=== PATIENT | female | born 1965 | race American Indian/Alaskan Native ===

== ENCOUNTER 2017-01-22 00:08 | Inpatient (IN) | payer OTHER ==
--- NOTE | 2017-01-22 00:25 | Emergency Department Report ---
ED Shortness of Breath HPI - General Chief Complaint: Dyspnea/Respdistress Stated Complaint: DIFFICULTY BREATHING Time Seen by Provider: 01/22/17 00:23 Source: patient, EMS (ems notes not available at time of chart dictation) Limitations: No Limitations - History of Present Illness Initial Comments: This is a 51-year-old female. She is previously unknown to me. She is brought to the hospital by EMS for cough, lightheadedness, dizziness, almost passing out and shortness of breath. Symptoms have been going on for the past few days. They worsen with physical exertion, and they decrease with rest. There is no leg pain. There is right lower extremity swelling. Patient reports that she has a "charley horse" in the right lower extremity. No recent trips greater than 4 hours. No recent hospital admissions. Patient has been having a nonproductive cough for the past few weeks, it is getting worse. The patient reports that she has dramatic decrease in exercise tolerance , she has new onset orthopnea, and she has swelling in her legs. Patient also describes central chest pain which does not radiate to the back, arms or neck. There is no hematemesis of bright red blood per rectum. MD Complaint: shortness of breath, cough, chest pain -: Gradual, days(s) Quality: aching, throbbing Consistency: constant Improves With: oxygen, rest, bronchodilators, upright position Worsens With: lying flat, exertion Context: recent URI Associated Symptoms: chest pain, cough, orhopnia, lower extremity pain - Related Data Home Medications Medication Instructions Recorded Confirmed Last Taken Losartan [Cozaar] 50 mg PO QDAY 01/22/17 01/22/17 01/21/17 21:00 amLODIPine [Norvasc] 10 mg PO DAILY 01/22/17 01/22/17 01/21/17 21:00 Previous Rx's Medication Instructions Recorded Last Taken Type Oxycodone HCl/Acetaminophen 1 each PO Q6HR PRN #20 tablet 12/27/15 01/02/17 00: 00 Rx [Percocet 7.5/325 mg] Allergies Allergy/AdvReac Type Severity Reaction Status Date / Time No Known Allergies Allergy Verified 01/22/17 03:08 ED Review of Systems ROS: Stated complaint: DIFFICULTY BREATHING Other details as noted in HPI Constitutional: malaise Eyes: denies: vision change ENT: congestion Respiratory: shortness of breath Cardiovascular: chest pain, dyspnea on exertion, syncope Gastrointestinal: denies: melena, hematochezia Genitourinary: denies: dysuria Musculoskeletal: arthralgia, myalgia Skin: denies: lesions Neurological: weakness Psychiatric: anxiety ED Past Medical Hx - Past Medical History Hx Hypertension: Yes - Surgical History Hx Cholecystectomy: Yes - Social History Smoking Status: Never Smoker Substance Use Type: None - Medications Home Medications: Home Medications Medication Instructions Recorded Confirmed Last Taken Type Oxycodone HCl/Acetaminophen 1 each PO Q6HR PRN #20 tablet 12/27/15 01/22/1707/21 00:00 Rx [Percocet 7.5/325 mg] Losartan [Cozaar] 50 mg PO QDAY 01/22/17 01/22/17 01/21/17 21:00 History amLODIPine [Norvasc] 10 mg PO DAILY 01/22/17 01/22/17 01/21/17 21:00 History ED Physical Exam - General Limitations: Physical Limitation General appearance: alert, in distress, obese - Head Head exam: Present: atraumatic, normocephalic - Eye Eye exam: Present: normal appearance, EOMI. Absent: nystagmus - ENT ENT exam: Present: normal exam, normal orophraynx, mucous membranes moist, normal external ear exam - Neck Neck exam: Present: normal inspection, full ROM. Absent: tenderness, meningismus - Respiratory Respiratory exam: Present: respiratory distress, wheezes, rales, rhonchi. Absent: stridor, chest wall tenderness, accessory muscle use, decreased breath sounds, prolonged expiratory - Cardiovascular Cardiovascular Exam: Present: normal rhythm, tachycardia, normal heart sounds. Absent: systolic murmur, diastolic murmur, rubs, gallop - GI/Abdominal GI/Abdominal exam: Present: soft, normal bowel sounds. Absent: distended, tenderness, guarding, rebound, rigid, pulsatile mass - Extremities Exam Extremities exam: Present: normal inspection, full ROM, normal capillary refill. Absent: tenderness, pedal edema, joint swelling, calf tenderness - Back Exam Back exam: Present: normal inspection, full ROM. Absent: tenderness, CVA tenderness (R), CVA tenderness (L), muscle spasm, paraspinal tenderness, vertebral tenderness - Neurological Exam Neurological exam: Present: alert, oriented X3, other (Extraocular movements intact. Tongue midline. No facial droop. Facial sensation intact to light touch in the V1, V2, V3 distribution bilaterally. 5 and 5 strength in 4 extremities.. Sensation is intact to light touch in 4 extremities.). Absent: motor sensory deficit - Psychiatric Psychiatric exam: Present: normal affect, normal mood - Skin Skin exam: Present: warm, dry, intact, normal color. Absent: rash ED Course Vital Signs 01/22/17 01/22/17 01/22/17 00:43 00:52 04:31 Temperature 98.7 F Pulse Rate 103 H 98 H Respiratory 24 24 21 Rate Blood Pressure 148/87 Blood Pressure 148/87 127/76 [Left] O2 Sat by Pulse 99 99 Oximetry - Reevaluation(s) Reevaluation #1: 01/22/17 04:24 CT scan demonstrates multiple pulmonary emboli. Lovenox ordered. The Hospital physician is updated. ED Medical Decision Making - Lab Data Result diagrams: 01/22/17 00:44 01/22/17 01:38 Vital Signs 01/22/17 01/22/17 00:43 00:52 Temperature 98.7 F Pulse Rate 103 H Respiratory 24 24 Rate Blood Pressure 148/87 Blood Pressure 148/87 [Left] O2 Sat by Pulse 99 Oximetry Lab Results 01/22/17 01/22/17 01/22/17 Range/Units 00:44 00:44 00:44 WBC 11.5 H (4.5-11.0) K/mm3 RBC 4.66 (3.65-5.03) M/mm3 Hgb 7.9 L (10.1-14.3) gm/dl Hct 27.2 L (30.3-42.9) % MCV 58 L (79-97) fl MCH 17 L (28-32) pg MCHC 29 L (30-34) % RDW 20.1 H (13.2-15.2) % Plt Count 230 (140-440) K/mm3 Lymph % (Auto) 16.8 (13.4-35.0) % [place] % (Auto) 8.5 H (0.0-7.3) % Eos % (Auto) 0.9 (0.0-4.3) % Baso % (Auto) 0.5 (0.0-1.8) % Lymph # 1.9 (1.2-5.4) K/mm3 [place] # 1.0 H (0.0-0.8) K/mm3 Eos # 0.1 (0.0-0.4) K/mm3 Baso # 0.1 (0.0-0.1) K/mm3 Seg Neutrophils % 73.3 H (40.0-70.0) % Seg Neutrophils # 8.4 H (1.8-7.7) K/mm3 PT 13.8 (12.2-14.9) Sec. INR 1.01 (0.87-1.13) APTT 27.2 (24.2-36.6) Sec. Sodium (137-145) mmol/L Potassium (3.6-5.0) mmol/L Chloride (98-107) mmol/L Carbon Dioxide (22-30) mmol/L Anion Gap mmol/L BUN (7-17) mg/dL Creatinine (0.7-1.2) mg/dL Estimated GFR ml/min BUN/Creatinine Ratio % Glucose (65-100) mg/dL Lactic Acid 1.70 (0.7-2.0) mmol/L Calcium (8.4-10.2) mg/dL Magnesium (1.7-2.3) mg/dL Troponin T (0.00-0.029) ng/mL NT-Pro-B Natriuret Pep (0-900) pg/mL 01/22/17 01/22/17 01/22/17 Range/Units 00:44 00:44 01:38 WBC (4.5-11.0) K/mm3 RBC (3.65-5.03) M/mm3 Hgb (10.1-14.3) gm/dl Hct (30.3-42.9) % MCV (79-97) fl MCH (28-32) pg MCHC (30-34) % RDW (13.2-15.2) % Plt Count (140-440) K/mm3 Lymph % (Auto) (13.4-35.0) % [place] % (Auto) (0.0-7.3) % Eos % (Auto) (0.0-4.3) % Baso % (Auto) (0.0-1.8) % Lymph # (1.2-5.4) K/mm3 [place] # (0.0-0.8) K/mm3 Eos # (0.0-0.4) K/mm3 Baso # (0.0-0.1) K/mm3 Seg Neutrophils % (40.0-70.0) % Seg Neutrophils # (1.8-7.7) K/mm3 PT (12.2-14.9) Sec. INR (0.87-1.13) APTT (24.2-36.6) Sec. Sodium 135 L (137-145) mmol/L Potassium 4.6 (3.6-5.0) mmol/L Chloride 96.0 L (98-107) mmol/L Carbon Dioxide 24 (22-30) mmol/L Anion Gap 20 mmol/L BUN 14 (7-17) mg/dL Creatinine 1.2 (0.7-1.2) mg/dL Estimated GFR 58 ml/min BUN/Creatinine Ratio 11.66 % Glucose 126 H (65-100) mg/dL Lactic Acid (0.7-2.0) mmol/L Calcium 8.9 (8.4-10.2) mg/dL Magnesium 2.20 (1.7-2.3) mg/dL Troponin T < 0.010 (0.00-0.029) ng/mL NT-Pro-B Natriuret Pep 2385 H (0-900) pg/mL 01/22/17 Range/Units 02:29 WBC (4.5-11.0) K/mm3 RBC (3.65-5.03) M/mm3 Hgb (10.1-14.3) gm/dl Hct (30.3-42.9) % MCV (79-97) fl MCH (28-32) pg MCHC (30-34) % RDW (13.2-15.2) % Plt Count (140-440) K/mm3 Lymph % (Auto) (13.4-35.0) % [place] % (Auto) (0.0-7.3) % Eos % (Auto) (0.0-4.3) % Baso % (Auto) (0.0-1.8) % Lymph # (1.2-5.4) K/mm3 [place] # (0.0-0.8) K/mm3 Eos # (0.0-0.4) K/mm3 Baso # (0.0-0.1) K/mm3 Seg Neutrophils % (40.0-70.0) % Seg Neutrophils # (1.8-7.7) K/mm3 PT 14.4 (12.2-14.9) Sec. INR 1.06 (0.87-1.13) APTT (24.2-36.6) Sec. Sodium (137-145) mmol/L Potassium (3.6-5.0) mmol/L Chloride (98-107) mmol/L Carbon Dioxide (22-30) mmol/L Anion Gap mmol/L BUN (7-17) mg/dL Creatinine (0.7-1.2) mg/dL Estimated GFR ml/min BUN/Creatinine Ratio % Glucose (65-100) mg/dL Lactic Acid (0.7-2.0) mmol/L Calcium (8.4-10.2) mg/dL Magnesium (1.7-2.3) mg/dL Troponin T (0.00-0.029) ng/mL NT-Pro-B Natriuret Pep (0-900) pg/mL - EKG Data -: EKG Interpreted by Me EKG shows normal: sinus rhythm - EKG Data 01/22/17 03:47 normal sinus, 88 bpm, left axis deviation, T-wave inversion V2, V3, abnormal EKG, not morphologically consistent with STEMI, when compared to prior EKG from 2016, T wave changes are new, left axis deviation is old. - Radiology Data Radiology results: image reviewed interpreted by me: xr chest: pulmonary vascular congestion - Medical Decision Making differential diagnosis: bronchitis, chf, acs, pulmonary embolus, pulmonary htn, deep, respiratory failure assessment and plan: 51 y/o obese female with chest tightness, shortness of breath, wheezing, rhonchi, elevated BNP, most likely multifactorial, probable pulmonary hypertension and DEEP. She also reports a charley horse in her right lower extremity and right calf pain. Her EKG has nonspecific changes. She is given albuterol, Atrovent, steroids, aspirin and Lasix. CT scan of the chest is ordered. Hospital physician, Dr. Collins, accepts the patient to his service. Critical care attestation.: If time is entered above; I have spent that time in minutes in the direct care of this critically ill patient, excluding procedure time. ED Disposition Clinical Impression: Chest pain, Dyspnea Disposition: [id number] OP ADMIT IP TO THIS HOSP Is pt being admited?: Yes Does the pt Need Aspirin: Yes Condition: Stable
[2017-01-22 01:12] LABS: Basophils % (Auto) 0.5 % (0.0-1.8); Eosinophils % (Auto) 0.9 % (0.0-4.3); Mean Corpuscular HGB Conc 29 % (30-34); Platelet Count 230 K/mm3 (140-440); Red Blood Count 4.66 M/mm3 (3.65-5.03); White Blood Count 11.5 K/mm3 (4.5-11.0)
[2017-01-22 01:13] LABS: Hematocrit 27.2 % (30.3-42.9); Hemoglobin 7.9 gm/dl (10.1-14.3); Mean Corpuscular Hemoglobin 17 pg (28-32); Mean Corpuscular Volume 58 fl (79-97); Red Cell Distribution Width 20.1 % (13.2-15.2)
[2017-01-22 01:27] LABS: INR 1.01 (0.87-1.13); Partial Thromboplastin Time 27.2 Sec. (24.2-36.6)
[2017-01-22 01:56] LABS: BUN/Creatinine Ratio 11.66; Calcium 8.9 mg/dL (8.4-10.2); Potassium 4.6 mmol/L (3.6-5.0)
[2017-01-22] MEDS ORDERED: PROVENTIL IH ONE ×3 (02:04→03:28)
[2017-01-22] MEDS ORDERED: ATROVENT IH ONE ×3 (02:04→03:28)
[2017-01-22] MEDS ORDERED: LASIX IV ONE (02:04)
[2017-01-22] MEDS ORDERED: NITROSTAT SL PRN (02:04)
[2017-01-22] MEDS ORDERED: BABY ASPIRIN PO ONE (02:05)
[2017-01-22] MEDS ORDERED: NACL ONE (02:53)
[2017-01-22 03:23] LABS: INR 1.06 (0.87-1.13)
[2017-01-22] MEDS ORDERED: LOVENOX SUB-Q STA ×2 (04:13→04:19)
--- NOTE | 2017-01-22 04:16 | XRay Report ---
FINAL REPORT PROCEDURE: CT ANGIO CHEST TECHNIQUE: Computerized tomographic angiography of the chest was performed after the IV injection of iodinated nonionic contrast including image processing. The image data was postprocessed using 2-dimensional multiplanar reformatted (MPR) and 3-dimensional (MIP and/or volume rendered) techniques. HISTORY: cp sob COMPARISON: No prior studies are available for comparison. FINDINGS: Heart and pericardium: Normal. Thoracic aorta: Normal. Pulmonary vasculature: There are bilateral pulmonary emboli in the mid and distal branches. There is no saddle embolus.. Lymph nodes: No enlarged thoracic lymph nodes. Lungs: Lungs are clear and expanded. There are no infiltrates.. Pleural space: There is no effusion or pneumothorax.. Musculoskeletal structures: No significant abnormality. Upper abdominal structures: There has been a cholecystectomy.. IMPRESSION: There are bilateral pulmonary emboli in the mid and distal branches. There is no saddle embolus.. There is no thoracic aortic aneurysm or dissection. Lungs are clear and expanded. There are no infiltrates.. There is no effusion or pneumothorax.. There has been a cholecystectomy.. Dr. Arreola was notified by telephone at 4:08 a.m. Eastern time.
--- NOTE | 2017-01-22 07:37 | History and Physical Report ---
History of Present Illness Date of examination: 01/22/17 Date of admission: 01/22/17 02:11 Chief complaint: Chief complaint: Increasing shortness of breath for 1 week. History of present illness: History of present illness: 51-year-old -[place] female comes in for increasing shortness of breath and wheezing for last 1 week. Never had a similar episode in the past. No fever no chills. Cough nonproductive. No history of asthma. Slight chest discomfort present. Exertional dyspnea present. No orthopnea. She is brought to the hospital by EMS for cough, lightheadedness, dizziness, almost passing out and shortness of breath. Symptoms have been going on for the past few days. They worsen with physical exertion, and they decrease with rest. There is no leg pain. There is right lower extremity swelling. Patient reports that she has a "charley horse" in the right lower extremity. No recent trips greater than 4 hours. No recent hospital admissions. Patient has been having a nonproductive cough for the past few weeks, it is getting worse. The patient reports that she has dramatic decrease in exercise tolerance ,and has swelling in her legs. Patient also describes central chest pain which does not radiate to the back, arms or neck. There is no hematemesis of bright red blood per rectum. MD Complaint: shortness of breath, cough, chest pain -: Gradual, days(s) Quality: aching, throbbing Consistency: constant Improves With: oxygen, rest, bronchodilators, upright position Worsens With: lying flat, exertion Context: recent URI Associated Symptoms: chest pain, cough, orhopnia, lower extremity pain - Related Data Home Medications Medication Instructions Recorded Confirmed Last Taken Losartan [Cozaar] 50 mg PO QDAY 01/22/17 01/22/17 01/21/17 21:00 amLODIPine [Norvasc] 10 mg PO DAILY 01/22/17 01/22/17 01/21/17 21:00 Previous Rx's Medication Instructions Recorded Last Taken Type Oxycodone HCl/Acetaminophen 1 each PO Q6HR PRN #20 tablet 12/27/15 01/02/17 00: 00 Rx [Percocet 7.5/325 mg] Allergies Allergy/AdvReac Type Severity Reaction Status Date / Time No Known Allergies Allergy Verified 01/22/17 03:08 ED Review of Systems ROS: Stated complaint: DIFFICULTY BREATHING Other details as noted in HPI Constitutional: malaise Eyes: denies: vision change ENT: congestion Respiratory: shortness of breath Cardiovascular: chest pain, dyspnea on exertion, syncope Gastrointestinal: denies: melena, hematochezia Genitourinary: denies: dysuria Musculoskeletal: arthralgia, myalgia Skin: denies: lesions Neurological: weakness Psychiatric: anxiety ED Past Medical Hx - Past Medical History Hx Hypertension: Yes - Surgical History Hx Cholecystectomy: Yes - Social History Smoking Status: Never Smoker Substance Use Type: None Family history: Hypertension - Medications Home Medications: Home Medications Medication Instructions Recorded Confirmed Last Taken Type Oxycodone HCl/Acetaminophen 1 each PO Q6HR PRN #20 tablet 12/27/15 01/22/1707/21 00:00 Rx [Percocet 7.5/325 mg] Losartan [Cozaar] 50 mg PO QDAY 01/22/17 01/22/17 01/21/17 21:00 History amLODIPine [Norvasc] 10 mg PO DAILY 01/22/17 01/22/17 01/21/17 21:00 History Medications and Allergies Allergies Allergy/AdvReac Type Severity Reaction Status Date / Time No Known Allergies Allergy Verified 01/22/17 03:08 Home Medications Medication Instructions Recorded Confirmed Last Taken Type Oxycodone HCl/Acetaminophen 1 each PO Q6HR PRN #20 tablet 12/27/15 01/22/1707/21 00:00 Rx [Percocet 7.5/325 mg] Losartan [Cozaar] 50 mg PO QDAY 01/22/17 01/22/17 01/21/17 21:00 History amLODIPine [Norvasc] 10 mg PO DAILY 01/22/17 01/22/17 01/21/17 21:00 History Active Meds: Active Medications Nitroglycerin (Nitrostat) 0.4 mg SL .Q5MIN PRN PRN Reason: Chest Pain Pneumococcal Polyvalent Vaccine (Pneumovax 23) 0.5 ml IM .ONCE ONE Stop: 01/22/17 12:01 Exam - Physical Exam Narrative exam: In [id number] respiratory distress - Constitutional Vitals: Temp Pulse Resp BP Pulse Ox 98.7 F 84 22 127/76 99 01/22/17 00:43 01/22/17 05:11 01/22/17 05:45 01/22/17 04:31 01/22/17 04:31 General appearance: Present: no acute distress, well-nourished - EENT Eyes: Present: PERRL ENT: hearing intact, clear oral mucosa - Neck Neck: Present: supple, normal ROM - Respiratory Respiratory effort: normal Respiratory: bilateral: rhonchi - Cardiovascular Heart rate: 96 Rhythm: regular Heart Sounds: Present: S1 & S2. Absent: rub, click - Extremities Extremities: no ischemia, pulses intact, pulses symmetrical, No edema Extremity abnormal: edema (2+ peripheral edema) Peripheral Pulses: within normal limits - Abdominal General gastrointestinal: Present: soft, non-tender, non-distended, normal bowel sounds Female genitourinary: Present: normal - Integumentary Integumentary: Present: clear, warm, dry - Musculoskeletal Musculoskeletal: gait normal, strength equal bilaterally - Psychiatric Psychiatric: appropriate mood/affect, intact judgment & insight - Neurologic Neurologic: CNII-XII intact, moves all extremities Results - Labs CBC & Chem 7: 01/22/17 00:44 01/22/17 01:38 Labs: Laboratory Last Values WBC 11.5 K/mm3 (4.5-11.0) H 01/22/17 00:44 RBC 4.66 M/mm3 (3.65-5.03) 01/22/17 00:44 Hgb 7.9 gm/dl (10.1-14.3) L 01/22/17 00:44 Hct 27.2 % (30.3-42.9) L 01/22/17 00:44 MCV 58 fl (79-97) L 01/22/17 00:44 MCH 17 pg (28-32) L 01/22/17 00:44 MCHC 29 % (30-34) L 01/22/17 00:44 RDW 20.1 % (13.2-15.2) H 01/22/17 00:44 Plt Count 230 K/mm3 (140-440) 01/22/17 00:44 Lymph % (Auto) 16.8 % (13.4-35.0) 01/22/17 00:44 [place] % (Auto) 8.5 % (0.0-7.3) H 01/22/17 00:44 Eos % (Auto) 0.9 % (0.0-4.3) 01/22/17 00:44 Baso % (Auto) 0.5 % (0.0-1.8) 01/22/17 00:44 Lymph # 1.9 K/mm3 (1.2-5.4) 01/22/17 00:44 [place] # 1.0 K/mm3 (0.0-0.8) H 01/22/17 00:44 Eos # 0.1 K/mm3 (0.0-0.4) 01/22/17 00:44 Baso # 0.1 K/mm3 (0.0-0.1) 01/22/17 00:44 Seg Neutrophils % 73.3 % (40.0-70.0) H 01/22/17 00:44 Seg Neutrophils # 8.4 K/mm3 (1.8-7.7) H 01/22/17 00:44 PT 14.4 Sec. (12.2-14.9) 01/22/17 02:29 INR 1.06 (0.87-1.13) 01/22/17 02:29 APTT 27.2 Sec. (24.2-36.6) 01/22/17 00:44 Sodium 135 mmol/L (137-145) L 01/22/17 01:38 Potassium 4.6 mmol/L (3.6-5.0) 01/22/17 01:38 Chloride 96.0 mmol/L (98-107) L 01/22/17 01:38 Carbon Dioxide 24 mmol/L (22-30) 01/22/17 01:38 Anion Gap 20 mmol/L 01/22/17 01:38 BUN 14 mg/dL (7-17) 01/22/17 01:38 Creatinine 1.2 mg/dL (0.7-1.2) 01/22/17 01:38 Estimated GFR 58 ml/min 01/22/17 01:38 BUN/Creatinine Ratio 11.66 % 01/22/17 01:38 Glucose 126 mg/dL (65-100) H 01/22/17 01:38 Lactic Acid 1.70 mmol/L (0.7-2.0) 01/22/17 00:44 Calcium 8.9 mg/dL (8.4-10.2) 01/22/17 01:38 Magnesium 2.20 mg/dL (1.7-2.3) 01/22/17 00:44 Troponin T < 0.010 ng/mL (0.00-0.029) 01/22/17 00:44 NT-Pro-B Natriuret Pep 2385 pg/mL (0-900) H 01/22/17 00:44 Short CBC 01/22/17 Range/Units 00:44 WBC 11.5 H (4.5-11.0) K/mm3 Hgb 7.9 L (10.1-14.3) gm/dl Hct 27.2 L (30.3-42.9) % Plt Count 230 (140-440) K/mm3 BMP 01/22/17 01:38 Sodium 135 L Potassium 4.6 Chloride 96.0 L Carbon Dioxide 24 BUN 14 Creatinine 1.2 Glucose 126 H Calcium 8.9 Cardiac Enzymes 01/22/17 Range/Units 00:44 Troponin T < 0.010 (0.00-0.029) ng/mL - Imaging and Cardiology EKG: report reviewed CT scan - chest: report reviewed (bilateral pulmonary emboli segmental and subsegmental branchesand embolism) Assessment and Plan Advance Directives: Yes (full code) VTE prophylaxis?: Chemical Plan of care discussed with patient/family: Yes - Patient Problems (1) Acute pulmonary embolism Current Visit: Yes Status: Acute Qualifiers: Pulmonary embolism type: P Acute cor pulmonale presence: without acute cor pulmonale Plan to address problem: Patient started on Lovenox 120 mg sq q12 and Xarelto 15 mg po bid (2) Hypertension Current Visit: Yes Status: Chronic Qualifiers: Hypertension type: essential hypertension Qualified Code(s): I10 - Essential (primary) hypertension Plan to address problem: Continue losartan. Will hold amlodipine because of pedal edema. We will start her on Coreg 12.5 every 12. (3) Chest pain Current Visit: Yes Status: Acute Qualifiers: Chest pain type: chest pain on breathing Ischemic chest pain type: I Qualified Code(s): R07.1 - Chest pain on breathing Plan to address problem: Secondary to acute pulmonary embolism. Will get Lexiscan. (4) DVT prophylaxis Current Visit: Yes Status: Acute Plan to address problem: Patient on Lovenox 120 sq q12
[2017-01-22] MEDS ORDERED: NON-FORMULARY (Oxycodone Hcl/Acetaminophen [Percocet 7.5/325 Mg] 1 EACH) PO PRN (07:46)
[2017-01-22] MEDS ORDERED: XARELTO PO SCH (08:00)
--- NOTE | 2017-01-22 08:34 | Admit Criteria Form ---
Admission Criteria Documentation: CHEST PAIN Clinical Indications for Admission to Inpatient Care (Place 'X' for any and all applicable criteria): Admission is indicated for chest pain and ANY ONE of the following(1)(2)(3)(4)(5 ): [ ]I. Angina with acute coronary syndrome (Also use Myocardial Infarction or Angina guideline) [ ]II. Hemodynamic instability [ ]III. Angina needing acute intervention as indicated by ALL of the following( 11)(12): [ ]a) Unstable angina is present as indicated by angina that is ANY ONE of the following: [ ]i) New onset [ ]ii) Nocturnal [ ]iii) Prolonged at rest [ ]iv) Progressive [ ]b) Angina warrants acute intervention as indicated by ANY ONE of the following: [ ]i) Recurrent angina (e.g, not responding as previously to treatment) [ ]ii) Angina at rest or with low-level activities despite initial medical therapy [ ]iii) New or presumably new ST-segment depression on ECG [ ]iv) Signs or symptoms of heart failure (eg, dyspnea, pulmonary edema) [ ]v) New or worsening mitral regurgitation [ ]vi) Hemodynamic instability [ ]vii) Dangerous arrhythmia (eg, sustained ventricular tachycardia) [ ]viii) History of percutaneous coronary intervention within 6 months [ ]ix) History of coronary artery bypass graft surgery [ ]x) BEL risk score of 2 or greater[A] [ ]xi) History of Diabetes(14) [ ]xii) High-risk cardiac ischemia findings on noninvasive testing (e.g, echocardiogram, treadmill testing, nuclear scan) [ ]xiii) Chronic renal insufficiency (ie, estimated GFR less than 60 mL/min/1.732m) [ ]xiv) Left ventricular ejection fraction less than 40% [ ]IV. Evidence of ID (eg, cardiac biomarkers positive, ST-segment elevation on ECG) also use Myocardial Infarction Criteria Form. [ ]V. Pulmonary edema [ ]. Respiratory distress [ ]VII. Chest pain indicative of serious diagnosis other than coronary artery disease (eg, aortic dissection) [X ]VIII. Contraindications and/or Inappropriate clinical situations for Observational Care in patients with Chest Pain, when ANY ONE of the following is required: [ ]a) Patient with risk factor for pulmonary embolism, acute coronary syndrome and myocardial infarction (18) [ X]b) Patient with Pulmonary embolism require an average LOS of 4.3 days, therefore emergency department observation management is inappropriate 18,23 [ ]c) Painful condition/s in the elderly, have the highest rate of recidivism after emergency department observation management (10.8%) 20,21,22 [ ]d) Elevated cardiac biomarker requires intensive and exhaustive care (19) [X ]IX. General contraindications and/or Inappropriate clinical situations for Observational Care in patients with Chest Pain, when ANY ONE of the following is required: [X ]a) Prediction of prolongation of LOS based on ANY ONE of the following may be considered as a contraindication for observational care 2, 3, 4, 5, 6, 7, 8, 9, 10, 11 [ ]i) Age > 65 yrs. [X ]ii) Patient arriving by ambulance [ ]iii) Patient with high acuity [ ]iv) Patient requiring vital sign monitoring [ ]v) Patient on IV medication [ ]b) Systolic blood pressures 180mmHg 3,12 [ ]c) Patient with altered mental status including delirium and other alteration of consciousness, (3) [ ]d) Patient whose discharge disposition will be to a residential home or rehabilitation home should not be managed in Emergency Department Observation Unit. CMS rule requires 3 days hospital stay before such placement. 3,13 [ ]e) Patient with failure to thrive due to broad array of etiologies 3,16,17 [ ]f) Inability to ambulate 3,14 Extended stay beyond goal length of stay may be needed for (1)(28): [ ]a) Specific condition diagnosed after evaluation (eg, pulmonary embolism, aortic dissection) [ ]b) Unstable angina [ ]c) Continued suspicion of acute coronary syndrome with inability to complete needed cardiac evaluation (eg, patient clinically unable to undergo stress testing) [ ]d) Myocardial infarction (Contents from ANGINA and CHEST PAIN clinical indications for admission to inpatient care have been integrated in this form) The original [employer] content created by [employer] has been revised. The portions of the content which have been revised are identified through the use of italic text or in bold, and [employer] has neither reviewed nor approved the modified material. All other unmodified content is copyright [employer]. Please see references footnoted in the original [employer] edition 2016 Admission Criteria Met: Yes
[2017-01-22] MEDS ORDERED: PNEUMOVAX 23 IM ONE (12:00)
[2017-01-22] MEDS: COZAAR PO SCH (12:38)
[2017-01-22] MEDS: COREG PO SCH ×2 (12:39→21:35)
--- NOTE | 2017-01-22 19:20 | Event Note ---
Date: 01/22/17 She was seen and evaluated medical records reviewed Admitted this morning with PE, on full dose anticoagulation with Lovenox Cardiology hematology evaluation requested Medical records reviewed, agree with the current management Plan of care discussed with the patient and her nurse
[2017-01-22] MEDS: LOVENOX SUB-Q SCH (21:35)
[2017-01-22] MEDS ORDERED: LOVENOX SUB-Q SCH ×2 (22:00)
[2017-01-22] MEDS ORDERED: ROXICODONE PO PRN (22:02)
[2017-01-22] MEDS ORDERED: DULCOLAX PO PRN (23:43)
[2017-01-22] MEDS ORDERED: MILK OF MAGNESIA PO PRN (23:43)
[2017-01-22] MEDS ORDERED: AMBIEN PO PRN (23:43)
[2017-01-22] MEDS: COLACE PO SCH (23:56)
[2017-01-23 00:29] LABS: Bilirubin,Urine NEG (Negative); Blood,Urine NEG (Negative); Ketones,Urine NEG (Negative); Leukocyte Esterase,Urine NEG (Negative); Mucus,Urine FEW /HPF; Nitrite,Urine NEG (Negative); Protein,Urine <15 mg/dL mg/dL (Negative); Urobilinogen,Urine < 2.0 mg/dL (<2.0); WBC,Urine < 1.0 /HPF (0.0-6.0)
[2017-01-23 07:02] LABS: Basophils % (Auto) 0.1 % (0.0-1.8); Mean Corpuscular HGB Conc 28 % (30-34); Platelet Count 246 K/mm3 (140-440); Red Blood Count 4.47 M/mm3 (3.65-5.03); White Blood Count 14.1 K/mm3 (4.5-11.0)
[2017-01-23 07:05] LABS: Hematocrit 26.9 % (30.3-42.9); Hemoglobin 7.5 gm/dl (10.1-14.3); Mean Corpuscular Hemoglobin 17 pg (28-32); Mean Corpuscular Volume 60 fl (79-97); Red Cell Distribution Width 20.3 % (13.2-15.2)
[2017-01-23 07:11] LABS: INR 1.1 (0.87-1.13)
[2017-01-23 07:42] LABS: Anion Gap 20 mmol/L; Blood Urea Nitrogen 21 mg/dL (7-17); Calcium 8.9 mg/dL (8.4-10.2); Carbon Dioxide 23 mmol/L (22-30); Chloride 103.8 mmol/L (98-107); Glucose 118 mg/dL (65-100); Potassium 4.2 mmol/L (3.6-5.0); Sodium 143 mmol/L (137-145)
[2017-01-23] MEDS ORDERED: PROVENTIL IH PRN (10:35)
[2017-01-23] MEDS: LOVENOX SUB-Q SCH (10:38)
[2017-01-23] MEDS: COLACE PO SCH ×2 (10:38→22:14)
[2017-01-23] MEDS: COREG PO SCH ×2 (10:39→22:14)
[2017-01-23] MEDS: COZAAR PO SCH (10:39)
--- NOTE | 2017-01-23 11:43 | Hem/Onc Consultation ---
History of Present Illness - Reason for Consult Consult date: 01/23/17 - History of Present Illness Patient is a 51-year-old female who presented to the hospital with evidence of worsening shortness of breath. She also had evidence of right-sided leg pain. She presented to the hospital and was found to have bilateral pulmonary emboli. She has been admitted and has been started on anticoagulant. Currently she is on Lovenox. Because of pulmonary embolus and early consult was called. Patient does have heavy periods and in fact loss. Almost lasted a month. She does not take any by mouth iron. Eyes any family history of thrombosis. Denies any previous history of thrombosis. Does not smoke. She keeps up with her mammograms and Pap smears. 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 Eyes any bleeding except for heavy periods. Does have history of breast cancer on the mother's side. ovarian cancer in the older sister. Medications and Allergies Allergies Allergy/AdvReac Type Severity Reaction Status Date / Time No Known Allergies Allergy Verified 01/22/17 03:08 Home Medications Medication Instructions Recorded Confirmed Last Taken Type Oxycodone HCl/Acetaminophen 1 each PO Q6HR PRN #20 tablet 12/27/15 01/22/1707/21 00:00 Rx [Percocet 7.5/325 mg] Losartan [Cozaar] 50 mg PO QDAY 01/22/17 01/22/17 01/21/17 21:00 History amLODIPine [Norvasc] 10 mg PO DAILY 01/22/17 01/22/17 01/21/17 21:00 History Active Meds: Active Medications Albuterol (Proventil) 2.5 mg IH Q4HRT PRN PRN Reason: Shortness Of Breath Bisacodyl (Dulcolax) 10 mg PO QDAY PRN PRN Reason: Constipation Carvedilol (Coreg) 12.5 mg PO BID [facility] Last Admin: 01/23/17 10:39 Dose: 12.5 mg Docusate Sodium (Colace) 100 mg PO BID [facility] Last Admin: 01/23/17 10:38 Dose: 100 mg Losartan Potassium (Cozaar) 100 mg PO QDAY [facility] Last Admin: 01/23/17 10:39 Dose: 100 mg Magnesium Hydroxide (Milk Of Magnesia) 30 ml PO Q4H PRN PRN Reason: Constipation Nitroglycerin (Nitrostat) 0.4 mg SL .Q5MIN PRN PRN Reason: Chest Pain Oxycodone HCl (Roxicodone) 2.5 mg PO Q6H PRN PRN Reason: Pain, Moderate (4-6) Oxycodone/Acetaminophen (Percocet 5/325) 1 tab PO Q6H PRN PRN Reason: Pain, Moderate (4-6) Rivaroxaban (Xarelto) 15 mg PO BIDDIAB JEANNETTE PRN Reason: Protocol Zolpidem Tartrate (Ambien) 5 mg PO QHS PRN PRN Reason: Sleep Last Admin: 01/22/17 23:56 Dose: 5 mg Exam - Exam Narrative Exam: Obese - Constitutional Vitals: Last Vital Signs Temp 98.2 F 01/23/17 03:35 Pulse 80 01/23/17 10:39 Resp 18 01/23/17 03:35 BP 130/68 01/23/17 10:39 Pulse Ox 98 01/23/17 10:38 General appearance: no acute distress Performance status: 3-limited selfcare - Neck Neck: supple - Respiratory Respiratory effort: Positive: normal Respiratory: bilateral: diminished - Cardiovascular Rhythm: regular - Gastrointestinal General gastrointestinal: Present: soft Results - Labs lab Results: Laboratory Results - last 24 hr 01/22/17 01/23/17 01/23/17 Unknown 06:26 06:26 WBC 14.1 H RBC 4.47 Hgb 7.5 L Hct 26.9 L MCV 60 L MCH 17 L MCHC 28 L RDW 20.3 H Plt Count 246 Lymph % (Auto) 14.1 [place] % (Auto) 8.1 H Eos % (Auto) 0.0 Baso % (Auto) 0.1 Lymph # 2.0 Cannon # 1.1 H Eos # 0.0 Baso # 0.0 Seg Neutrophils % 77.7 H Seg Neutrophils # 11.0 H PT 14.8 INR 1.10 Sodium Potassium Chloride Carbon Dioxide Anion Gap BUN Creatinine Estimated GFR BUN/Creatinine Ratio Glucose Calcium Urine Color Straw Urine Turbidity Clear Urine pH 5.0 Ur Specific [place] 1.021 Urine Protein <15 mg/dl Urine Glucose (UA) Neg Urine Ketones Neg Urine Blood Neg Urine Nitrite Neg Urine Bilirubin Neg Urine Urobilinogen < 2.0 Ur Leukocyte Esterase Neg Urine WBC (Auto) < 1.0 Urine RBC (Auto) 2.0 U Epithel Cells (Auto) < 1.0 Urine Mucus Few 01/23/17 06:26 WBC RBC Hgb Hct MCV MCH MCHC RDW Plt Count Lymph % (Auto) [place] % (Auto) Eos % (Auto) Baso % (Auto) Lymph # Cannon # Eos # Baso # Seg Neutrophils % Seg Neutrophils # PT INR Sodium 143 D Potassium 4.2 Chloride 103.8 Carbon Dioxide 23 Anion Gap 20 BUN 21 H Creatinine 1.0 Estimated GFR > 60 BUN/Creatinine Ratio 21.00 Glucose 118 H Calcium 8.9 Urine Color Urine Turbidity Urine pH Ur Specific [place] Urine Protein Urine Glucose (UA) Urine Ketones Urine Blood Urine Nitrite Urine Bilirubin Urine Urobilinogen Ur Leukocyte Esterase Urine WBC (Auto) Urine RBC (Auto) U Epithel Cells (Auto) Urine Mucus Assessment and Plan At this time we will go ahead and start her on Xarelto. We will also do anemia workup. If iron deficient, we can give her IV or by mouth iron. Next Will get Doppler of the lower extremity also. We will do hypercoagulable workup as outpatient. Discussed with Dr. Schultz.
[2017-01-23 12:51] LABS: Reticulocyte % 2.33 % (0.78-2.58)
[2017-01-23 13:19] LABS: Total Iron Binding Capacity 492.8 mcg/dL (250-450)
--- NOTE | 2017-01-23 16:51 | Progress Note ---
Assessment and Plan Assessment and plan: --acute moon pulmonary embolism : on Full dose anticoagulation with Lovenox , We will DC Lovenox and add Xeralto per hematology Hypercoagulable workup as outpatient, hematology evaluation and recommendations noted and appreciated --Bilateral lower extremity DVT Continue current anticoagulation, will consult vascular . --Anemia; probably iron deficiency secondary to menorrhagia, iron supplements --History of menorrhagia; chronic blood loss; advised to see MANAGER STUDIO as outpatient for further evaluation --Atypical chest pain; probably secondary to PE, Supportive care --Hypertension; moderate control continue current antihypertensives and when necessary hydralazine --Moderate obesity; counseling done advised diet modification and exercise as tolerated and weight reduction when medically stable Patient also benefit from outpatient bariatric surgery evaluation for weight reduction program when medically stable Plan of care discussed with the patient, her nurse case management History Interval history: Patient seen and evaluated in her room this morning medical records reviewed Patient feels slightly better today, denies chest pain or shortness of breath Alert awake oriented 3 not in acute distress, morbidly obese, vital signs reviewed Hospitalist Physical - Constitutional Vitals: Temp Pulse Resp BP Pulse Ox 98.4 F 80 20 98/53 98 01/23/17 15:05 01/23/17 15:05 01/23/17 15:05 01/23/17 15:05 01/23/17 10:38 General appearance: Present: no acute distress, well-nourished - EENT Eyes: Present: PERRL, EOM intact - Neck Neck: Present: supple, normal ROM - Respiratory Respiratory effort: normal Respiratory: bilateral: diminished, negative: rales, rhonchi, wheezing - Cardiovascular Rhythm: regular Heart Sounds: Present: S1 & S2 - Extremities Extremities: no ischemia, abnormal (obese lower extremities) Extremity abnormal: edema - Abdominal General gastrointestinal: soft, non-tender, non-distended, normal bowel sounds - Integumentary Integumentary: Present: clear, warm - Psychiatric Psychiatric: appropriate mood/affect, cooperative - Neurologic Neurologic: CNII-XII intact, moves all extremities Results - Labs CBC & Chem 7: 01/23/17 06:26 01/23/17 06:26 Labs: Laboratory Last Values WBC 14.1 K/mm3 (4.5-11.0) H 01/23/17 06:26 RBC 4.47 M/mm3 (3.65-5.03) 01/23/17 06:26 Hgb 7.5 gm/dl (10.1-14.3) L 01/23/17 06:26 Hct 26.9 % (30.3-42.9) L 01/23/17 06:26 MCV 60 fl (79-97) L 01/23/17 06:26 MCH 17 pg (28-32) L 01/23/17 06:26 MCHC 28 % (30-34) L 01/23/17 06:26 RDW 20.3 % (13.2-15.2) H 01/23/17 06:26 Plt Count 246 K/mm3 (140-440) 01/23/17 06:26 Lymph % (Auto) 14.1 % (13.4-35.0) 01/23/17 06:26 Cotton % (Auto) 8.1 % (0.0-7.3) H 01/23/17 06:26 Eos % (Auto) 0.0 % (0.0-4.3) 01/23/17 06:26 Baso % (Auto) 0.1 % (0.0-1.8) 01/23/17 06:26 Lymph # 2.0 K/mm3 (1.2-5.4) 01/23/17 06:26 Cotton # 1.1 K/mm3 (0.0-0.8) H 01/23/17 06:26 Eos # 0.0 K/mm3 (0.0-0.4) 01/23/17 06:26 Baso # 0.0 K/mm3 (0.0-0.1) 01/23/17 06:26 Seg Neutrophils % 77.7 % (40.0-70.0) H 01/23/17 06:26 Seg Neutrophils # 11.0 K/mm3 (1.8-7.7) H 01/23/17 06:26 Percent Retic 2.33 % (0.78-2.58) 01/23/17 12:19 PT 14.8 Sec. (12.2-14.9) 01/23/17 06:26 INR 1.10 (0.87-1.13) 01/23/17 06:26 APTT 27.2 Sec. (24.2-36.6) 01/22/17 00:44 Sodium 143 mmol/L (137-145) D 01/23/17 06:26 Potassium 4.2 mmol/L (3.6-5.0) 01/23/17 06:26 Chloride 103.8 mmol/L (98-107) 01/23/17 06:26 Carbon Dioxide 23 mmol/L (22-30) 01/23/17 06:26 Anion Gap 20 mmol/L 01/23/17 06:26 BUN 21 mg/dL (7-17) H 01/23/17 06:26 Creatinine 1.0 mg/dL (0.7-1.2) 01/23/17 06:26 Estimated GFR > 60 ml/min 01/23/17 06:26 BUN/Creatinine Ratio 21.00 % 01/23/17 06:26 Glucose 118 mg/dL (65-100) H 01/23/17 06:26 Lactic Acid 1.70 mmol/L (0.7-2.0) 01/22/17 00:44 Calcium 8.9 mg/dL (8.4-10.2) 01/23/17 06:26 Magnesium 2.20 mg/dL (1.7-2.3) 01/22/17 00:44 Iron 17 ug/dL (37-170) L 01/23/17 12:19 TIBC 492.80 mcg/dL (250-450) H 01/23/17 12:19 % Saturation 3.45 % 01/23/17 12:19 Transferrin 352 mg/dl (192-382) 01/23/17 12:19 Ferritin 13.3 ng/mL (13.0-400.0) 01/23/17 12:19 Troponin T < 0.010 ng/mL (0.00-0.029) 01/22/17 00:44 NT-Pro-B Natriuret Pep 2385 pg/mL (0-900) H 01/22/17 00:44 Vitamin B12 230.1 pg/mL (211-911) 01/23/17 12:19 Folate 4.37 ng/mL (7.3-26.0) L 01/23/17 12:19 Urine Color Straw (Yellow) 01/22/17 Unknown Urine Turbidity Clear (Clear) 01/22/17 Unknown Urine pH 5.0 (5.0-7.0) 01/22/17 Unknown Ur Specific [place] 1.021 (1.003-1.030) 01/22/17 Unknown Urine Protein <15 mg/dl mg/dL (Negative) 01/22/17 Unknown Urine Glucose (UA) Neg mg/dL (Negative) 01/22/17 Unknown Urine Ketones Neg mg/dL (Negative) 01/22/17 Unknown Urine Blood Neg (Negative) 01/22/17 Unknown Urine Nitrite Neg (Negative) 01/22/17 Unknown Urine Bilirubin Neg (Negative) 01/22/17 Unknown Urine Urobilinogen < 2.0 mg/dL (<2.0) 01/22/17 Unknown Ur Leukocyte Esterase Neg (Negative) 01/22/17 Unknown Urine WBC (Auto) < 1.0 /HPF (0.0-6.0) 01/22/17 Unknown Urine RBC (Auto) 2.0 /HPF (0.0-6.0) 01/22/17 Unknown U Epithel Cells (Auto) < 1.0 /HPF (0-13.0) 01/22/17 Unknown Urine Mucus Few /HPF 01/22/17 Unknown
[2017-01-23] MEDS: PERCOCET 5/325 PO PRN (18:42)
[2017-01-23] MEDS: FEOSOL PO SCH (20:40)
[2017-01-23] MEDS: XARELTO PO SCH (22:15)
[2017-01-24] MEDS: FEOSOL PO SCH ×3 (10:05→22:43)
[2017-01-24] MEDS: XARELTO PO SCH ×2 (10:05→16:00)
[2017-01-24] MEDS: COZAAR PO SCH (10:06)
[2017-01-24] MEDS: COLACE PO SCH ×2 (10:06→22:43)
[2017-01-24] MEDS: COREG PO SCH ×2 (10:07→22:44)
--- NOTE | 2017-01-24 16:04 | Progress Note ---
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 for further evaluation --Hypertension; moderate control continue current antihypertensives and when necessary hydralazine --Morbid Obesity; counseling done advised diet modification and exercise as tolerated and weight reduction when medically stable Patient also would benefit from outpatient bariatric surgery evaluation for weight reduction program when medically stable Plan of care discussed with the patient, her nurse case management Follow vascular evaluation, possible discharge in 1-2 days stable Since condition treatment plan discussed in detail with the patient and her nurse History Interval history: Patient seen and evaluated medical records reviewed Patient feels slightly better, no new complaints On Xeralto , lower extremity venous Doppler positive for bilateral DVT Alert awake oriented 3 not in acute distress, vital signs reviewed Hospitalist Physical - Constitutional Vitals: Temp Pulse Resp BP Pulse Ox 97.5 F L 69 18 107/53 99 01/24/17 12:00 01/24/17 15:23 01/24/17 12:00 01/24/17 12:00 01/24/17 12:00 General appearance: Present: no acute distress, well-nourished - EENT Eyes: Present: PERRL, EOM intact - Neck Neck: Present: supple, normal ROM - Respiratory Respiratory effort: normal Respiratory: bilateral: diminished, rhonchi, negative: rales, wheezing - Cardiovascular Rhythm: regular Heart Sounds: Present: S1 & S2 - Extremities Extremities: no ischemia, pulses intact, abnormal (bilateral DVT) - Abdominal General gastrointestinal: soft, non-tender, non-distended, normal bowel sounds - Integumentary Integumentary: Present: clear, warm - Psychiatric Psychiatric: appropriate mood/affect, cooperative - Neurologic Neurologic: CNII-XII intact, moves all extremities Results - Labs CBC & Chem 7: 01/23/17 06:26 01/23/17 06:26 Labs: Laboratory Last Values WBC 14.1 K/mm3 (4.5-11.0) H 01/23/17 06:26 RBC 4.47 M/mm3 (3.65-5.03) 01/23/17 06:26 Hgb 7.5 gm/dl (10.1-14.3) L 01/23/17 06:26 Hct 26.9 % (30.3-42.9) L 01/23/17 06:26 MCV 60 fl (79-97) L 01/23/17 06:26 MCH 17 pg (28-32) L 01/23/17 06:26 MCHC 28 % (30-34) L 01/23/17 06:26 RDW 20.3 % (13.2-15.2) H 01/23/17 06:26 Plt Count 246 K/mm3 (140-440) 01/23/17 06:26 Lymph % (Auto) 14.1 % (13.4-35.0) 01/23/17 06:26 [place] % (Auto) 8.1 % (0.0-7.3) H 01/23/17 06:26 Eos % (Auto) 0.0 % (0.0-4.3) 01/23/17 06:26 Baso % (Auto) 0.1 % (0.0-1.8) 01/23/17 06:26 Lymph # 2.0 K/mm3 (1.2-5.4) 01/23/17 06:26 [place] # 1.1 K/mm3 (0.0-0.8) H 01/23/17 06:26 Eos # 0.0 K/mm3 (0.0-0.4) 01/23/17 06:26 Baso # 0.0 K/mm3 (0.0-0.1) 01/23/17 06:26 Seg Neutrophils % 77.7 % (40.0-70.0) H 01/23/17 06:26 Seg Neutrophils # 11.0 K/mm3 (1.8-7.7) H 01/23/17 06:26 Percent Retic 2.33 % (0.78-2.58) 01/23/17 12:19 PT 14.8 Sec. (12.2-14.9) 01/23/17 06:26 INR 1.10 (0.87-1.13) 01/23/17 06:26 APTT 27.2 Sec. (24.2-36.6) 01/22/17 00:44 Sodium 143 mmol/L (137-145) D 01/23/17 06:26 Potassium 4.2 mmol/L (3.6-5.0) 01/23/17 06:26 Chloride 103.8 mmol/L (98-107) 01/23/17 06:26 Carbon Dioxide 23 mmol/L (22-30) 01/23/17 06:26 Anion Gap 20 mmol/L 01/23/17 06:26 BUN 21 mg/dL (7-17) H 01/23/17 06:26 Creatinine 1.0 mg/dL (0.7-1.2) 01/23/17 06:26 Estimated GFR > 60 ml/min 01/23/17 06:26 BUN/Creatinine Ratio 21.00 % 01/23/17 06:26 Glucose 118 mg/dL (65-100) H 01/23/17 06:26 Lactic Acid 1.70 mmol/L (0.7-2.0) 01/22/17 00:44 Calcium 8.9 mg/dL (8.4-10.2) 01/23/17 06:26 Magnesium 2.20 mg/dL (1.7-2.3) 01/22/17 00:44 Iron 17 ug/dL (37-170) L 01/23/17 12:19 TIBC 492.80 mcg/dL (250-450) H 01/23/17 12:19 % Saturation 3.45 % 01/23/17 12:19 Transferrin 352 mg/dl (192-382) 01/23/17 12:19 Ferritin 13.3 ng/mL (13.0-400.0) 01/23/17 12:19 Troponin T < 0.010 ng/mL (0.00-0.029) 01/22/17 00:44 NT-Pro-B Natriuret Pep 2385 pg/mL (0-900) H 01/22/17 00:44 Vitamin B12 230.1 pg/mL (211-911) 01/23/17 12:19 Folate 4.37 ng/mL (7.3-26.0) L 01/23/17 12:19 Urine Color Straw (Yellow) 01/22/17 Unknown Urine Turbidity Clear (Clear) 01/22/17 Unknown Urine pH 5.0 (5.0-7.0) 01/22/17 Unknown Ur Specific [place] 1.021 (1.003-1.030) 01/22/17 Unknown Urine Protein <15 mg/dl mg/dL (Negative) 01/22/17 Unknown Urine Glucose (UA) Neg mg/dL (Negative) 01/22/17 Unknown Urine Ketones Neg mg/dL (Negative) 01/22/17 Unknown Urine Blood Neg (Negative) 01/22/17 Unknown Urine Nitrite Neg (Negative) 01/22/17 Unknown Urine Bilirubin Neg (Negative) 01/22/17 Unknown Urine Urobilinogen < 2.0 mg/dL (<2.0) 01/22/17 Unknown Ur Leukocyte Esterase Neg (Negative) 01/22/17 Unknown Urine WBC (Auto) < 1.0 /HPF (0.0-6.0) 01/22/17 Unknown Urine RBC (Auto) 2.0 /HPF (0.0-6.0) 01/22/17 Unknown U Epithel Cells (Auto) < 1.0 /HPF (0-13.0) 01/22/17 Unknown Urine Mucus Few /HPF 01/22/17 Unknown
--- NOTE | 2017-01-24 16:30 | Consultation ---
History of Present Illness - History of Present Illness This is a 51-year-old female seen in consult regarding bilateral lower extremity deep vein thromboses and pulmonary embolism. She states that several days ago she began to experience simultaneous onset of right greater than left calf pain and shortness of breath. The shortness of breath and pain eventually became severe enough that she came to the ER. CT angiography documented segmental and subsegmental pulmonary emboli, without evidence of saddle or sub-massive embolism. Lower extremity Dopplers demonstrated bilateral popliteal DVT. She has had no history of blood clots prior to this. She has no significant surgical history other than cholecystectomy. She takes medications for hypertension as an outpatient. She does not smoke or have any history of oral contraceptive use recent. 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 Medications and Allergies Allergies Allergy/AdvReac Type Severity Reaction Status Date / Time No Known Allergies Allergy Verified 01/22/17 03:08 Home Medications Medication Instructions Recorded Confirmed Last Taken Type Oxycodone HCl/Acetaminophen 1 each PO Q6HR PRN #20 tablet 12/27/15 01/22/1707/21 00:00 Rx [Percocet 7.5/325 mg] Losartan [Cozaar] 50 mg PO QDAY 01/22/17 01/22/17 01/21/17 21:00 History amLODIPine [Norvasc] 10 mg PO DAILY 01/22/17 01/22/17 01/21/17 21:00 History Active Meds: Active Medications Albuterol (Proventil) 2.5 mg IH Q4HRT PRN PRN Reason: Shortness Of Breath Bisacodyl (Dulcolax) 10 mg PO QDAY PRN PRN Reason: Constipation Carvedilol (Coreg) 12.5 mg PO BID [facility] Last Admin: 01/24/17 10:07 Dose: 12.5 mg Docusate Sodium (Colace) 100 mg PO BID [facility] Last Admin: 01/24/17 10:06 Dose: 100 mg Ferrous Sulfate (Feosol) 325 mg PO TID [facility] Last Admin: 01/24/17 16:00 Dose: 325 mg Folic Acid (Folvite) 1 mg PO QDAY [facility] Losartan Potassium (Cozaar) 100 mg PO QDAY [facility] Last Admin: 01/24/17 10:06 Dose: 100 mg Nitroglycerin (Nitrostat) 0.4 mg SL .Q5MIN PRN PRN Reason: Chest Pain Oxycodone HCl (Roxicodone) 2.5 mg PO Q6H PRN PRN Reason: Pain, Moderate (4-6) Last Admin: 01/23/17 18:42 Dose: 2.5 mg Oxycodone/Acetaminophen (Percocet 5/325) 1 tab PO Q6H PRN PRN Reason: Pain, Moderate (4-6) Last Admin: 01/23/17 18:42 Dose: 1 tab Rivaroxaban (Xarelto) 15 mg PO BIDDIAB JEANNETTE PRN Reason: Protocol Stop: 02/13/17 08:01 Last Admin: 01/24/17 16:00 Dose: 15 mg Rivaroxaban (Xarelto) 20 mg PO DAILY [facility] PRN Reason: Protocol Zolpidem Tartrate (Ambien) 5 mg PO QHS PRN PRN Reason: Sleep Last Admin: 01/22/17 23:56 Dose: 5 mg Exam - Constitutional Vitals: Temp Pulse Resp BP Pulse Ox 97.5 F L 69 18 107/53 99 01/24/17 12:00 01/24/17 15:23 01/24/17 12:00 01/24/17 12:00 01/24/17 12:00 General appearance: Present: no acute distress - EENT Eyes: Present: PERRL ENT: hearing intact - Respiratory Respiratory effort: normal - Extremities Extremities: No edema, normal temperature, normal color, Full ROM Extremity abnormal: edema (very mild pedal edema), tenderness (mild pedal and calf tenderness to palpation) Results - Labs CBC & Chem 7: 01/23/17 06:26 01/23/17 06:26 Assessment and Plan This is a 51-year-old female with new DVT and pulmonary embolism. She states that since admission, her chest pain and leg pain have significantly improved. She is able to walk to the bathroom and back without difficulty, which represents an improvement from before. She was seen by hematology and oral anticoagulation, along with an outpatient coagulopathy workup was recommended. On exam, she does not have any signs or symptoms that would indicate an urgent venous intervention. She has no prior history of intracranial bleeding, stroke , or tumor. She also has no history of GI bleeding or other type of abnormal bleeding disorders. As such, she is an appropriate candidate for oral anticoagulation. Should oral anticoagulation become contraindicated in the near future, placement of an IVC filter can be considered.
[2017-01-24] MEDS: FOLVITE PO SCH (17:26)
[2017-01-24] MEDS: PERCOCET 5/325 PO PRN (17:28)
[2017-01-25 07:21] LABS: Basophils % (Auto) 2.7 % (0.0-1.8); Eosinophils % (Auto) 7.3 % (0.0-4.3); Hematocrit 25.7 % (30.3-42.9); Hemoglobin 7.1 gm/dl (10.1-14.3); Mean Corpuscular HGB Conc 28 % (30-34); Mean Corpuscular Hemoglobin 17 pg (28-32); Mean Corpuscular Volume 61 fl (79-97); Platelet Count 247 K/mm3 (140-440); Red Blood Count 4.24 M/mm3 (3.65-5.03); Red Cell Distribution Width 20.2 % (13.2-15.2); White Blood Count 11.7 K/mm3 (4.5-11.0)
[2017-01-25 07:44] LABS: Anion Gap 19 mmol/L; BUN/Creatinine Ratio 24.54; Blood Urea Nitrogen 27 mg/dL (7-17); Carbon Dioxide 24 mmol/L (22-30); Chloride 103.7 mmol/L (98-107); Glucose 115 mg/dL (65-100); Potassium 4.8 mmol/L (3.6-5.0); Sodium 142 mmol/L (137-145)
[2017-01-25] MEDS: FEOSOL PO SCH ×3 (08:04→20:30)
--- NOTE | 2017-01-25 08:26 | Vascular Lab Report ---
LOWER EXTREMITY VENOUS DUPLEX: REASON FOR EXAM: Pulmonary embolus. COMMENTS ON THE RIGHT: Deep venous thrombus is noted in the popliteal vein. The remaining veins visualized are freely compressible without evidence of internal echogenicity. Spontaneous and phasic flow is present proximally. COMMENTS ON THE LEFT: Deep venous thrombus is noted in the popliteal vein. The remaining veins visualized are freely compressible without evidence of internal echogenicity. Spontaneous and phasic flow is present proximally. IMPRESSION: Bilateral lower extremity deep venous thrombosis.
[2017-01-25] MEDS: XARELTO PO SCH ×2 (09:04→19:17)
--- NOTE | 2017-01-25 09:48 | Hem/Onc Progress Note ---
Assessment and Plan Pulmonary emboli and bilateral DVT. Continue anticoagulation. Once discharged , I would like to see her in my office and we will be ordering hypercoagulable workup at that time. Iron deficiency. If the po fe is hard for her to take or she's not responding to it, we will be considering IV iron to. Subjective Date of service: 01/25/17 Interval history: Patient tolerating Xarelto well. Vascular surgery recommendations noted. She was placed on iron. Overall feels fair. Objective - Exam Narrative Exam: Obese - Constitutional Vitals: Last Vital Signs Temp 97.4 F L 01/25/17 07:51 Pulse 77 01/25/17 07:51 Resp 20 01/25/17 07:51 BP 99/54 01/25/17 07:51 Pulse Ox 100 01/25/17 07:51 General appearance: no acute distress Performance status: 2- selfcare, ambulatory - Neck Neck: supple - Respiratory Respiratory effort: Positive: normal Respiratory: bilateral: diminished - Cardiovascular Rhythm: regular - Labs Lab Results: Laboratory Results - last 24 hr 01/25/17 01/25/17 06:37 06:37 WBC 11.7 H RBC 4.24 Hgb 7.1 L Hct 25.7 L MCV 61 L MCH 17 L MCHC 28 L RDW 20.2 H Plt Count 247 Lymph % (Auto) 16.1 Wilson % (Auto) 5.0 Eos % (Auto) 7.3 H Baso % (Auto) 2.7 H Lymph # 1.9 Wilson # 0.6 Eos # 0.9 H Baso # 0.3 H Seg Neutrophils % 68.9 Seg Neutrophils # 8.1 H Sodium 142 Potassium 4.8 Chloride 103.7 Carbon Dioxide 24 Anion Gap 19 BUN 27 H Creatinine 1.1 Estimated GFR > 60 BUN/Creatinine Ratio 24.54 Glucose 115 H Calcium 9.0
[2017-01-25] MEDS: COREG PO SCH ×2 (10:51→21:56)
[2017-01-25] MEDS: COLACE PO SCH ×2 (10:51→21:56)
[2017-01-25] MEDS: COZAAR PO SCH (10:51)
[2017-01-25] MEDS: FOLVITE PO SCH (11:12)
--- NOTE | 2017-01-25 19:46 | Progress Note ---
Assessment and Plan Assessment and plan: --acute moon pulmonary embolism : on Xeralto , hematology following, Hypercoagulable workup as outpatient, --Bilateral lower extremity DVT Continue current anticoagulation, patient is morbidly obese has bilateral PE and bilateral DVT Uncertain vascular --Anemia; probably iron deficiency secondary to menorrhagia, iron supplements --History of menorrhagia; chronic blood loss; advised to see FILLING MACHINE SET UP MECHANIC as outpatient for further evaluation --Hypertension; moderate control continue current antihypertensives and when necessary hydralazine --Morbid Obesity; counseling done advised diet modification and exercise as tolerated and weight reduction when medically stable Patient also would benefit from outpatient bariatric surgery evaluation for weight reduction program when medically stable Plan of care discussed with the patient, her nurse case management Follow vascular evaluation, possible discharge in 1-2 days stable Since condition treatment plan discussed in detail with the patient and her nurse Patient complains of intermittent shortness of breath ,evaluated for home oxygen Possible discharge home tomorrow, History Interval history: Seen and evaluated medical records reviewed Feels better mild shortness of breath Hospitalist Physical - Constitutional Vitals: Temp Pulse Resp BP Pulse Ox 97.7 F 86 20 108/64 94 01/25/17 16:00 01/25/17 16:00 01/25/17 16:00 01/25/17 16:00 01/25/17 16:00 General appearance: Present: no acute distress, well-nourished, obese - EENT Eyes: Present: PERRL, EOM intact - Neck Neck: Present: supple, normal ROM - Respiratory Respiratory effort: normal Respiratory: negative: rales, rhonchi, wheezing - Cardiovascular Rhythm: regular Heart Sounds: Present: S1 & S2 - Extremities Extremities: no ischemia, No edema - Abdominal General gastrointestinal: soft, non-tender, non-distended, normal bowel sounds - Integumentary Integumentary: Present: clear, warm - Psychiatric Psychiatric: appropriate mood/affect, cooperative - Neurologic Neurologic: CNII-XII intact, moves all extremities Results - Labs CBC & Chem 7: 01/25/17 06:37 01/25/17 06:37 Labs: Laboratory Last Values WBC 11.7 K/mm3 (4.5-11.0) H 01/25/17 06:37 RBC 4.24 M/mm3 (3.65-5.03) 01/25/17 06:37 Hgb 7.1 gm/dl (10.1-14.3) L 01/25/17 06:37 Hct 25.7 % (30.3-42.9) L 01/25/17 06:37 MCV 61 fl (79-97) L 01/25/17 06:37 MCH 17 pg (28-32) L 01/25/17 06:37 MCHC 28 % (30-34) L 01/25/17 06:37 RDW 20.2 % (13.2-15.2) H 01/25/17 06:37 Plt Count 247 K/mm3 (140-440) 01/25/17 06:37 Lymph % (Auto) 16.1 % (13.4-35.0) 01/25/17 06:37 Wheeler % (Auto) 5.0 % (0.0-7.3) 01/25/17 06:37 Eos % (Auto) 7.3 % (0.0-4.3) H 01/25/17 06:37 Baso % (Auto) 2.7 % (0.0-1.8) H 01/25/17 06:37 Lymph # 1.9 K/mm3 (1.2-5.4) 01/25/17 06:37 Wheeler # 0.6 K/mm3 (0.0-0.8) 01/25/17 06:37 Eos # 0.9 K/mm3 (0.0-0.4) H 01/25/17 06:37 Baso # 0.3 K/mm3 (0.0-0.1) H 01/25/17 06:37 Seg Neutrophils % 68.9 % (40.0-70.0) 01/25/17 06:37 Seg Neutrophils # 8.1 K/mm3 (1.8-7.7) H 01/25/17 06:37 Percent Retic 2.33 % (0.78-2.58) 01/23/17 12:19 PT 14.8 Sec. (12.2-14.9) 01/23/17 06:26 INR 1.10 (0.87-1.13) 01/23/17 06:26 APTT 27.2 Sec. (24.2-36.6) 01/22/17 00:44 Sodium 142 mmol/L (137-145) 01/25/17 06:37 Potassium 4.8 mmol/L (3.6-5.0) 01/25/17 06:37 Chloride 103.7 mmol/L (98-107) 01/25/17 06:37 Carbon Dioxide 24 mmol/L (22-30) 01/25/17 06:37 Anion Gap 19 mmol/L 01/25/17 06:37 BUN 27 mg/dL (7-17) H 01/25/17 06:37 Creatinine 1.1 mg/dL (0.7-1.2) 01/25/17 06:37 Estimated GFR > 60 ml/min 01/25/17 06:37 BUN/Creatinine Ratio 24.54 % 01/25/17 06:37 Glucose 115 mg/dL (65-100) H 01/25/17 06:37 Lactic Acid 1.70 mmol/L (0.7-2.0) 01/22/17 00:44 Calcium 9.0 mg/dL (8.4-10.2) 01/25/17 06:37 Magnesium 2.20 mg/dL (1.7-2.3) 01/22/17 00:44 Iron 17 ug/dL (37-170) L 01/23/17 12:19 TIBC 492.80 mcg/dL (250-450) H 01/23/17 12:19 % Saturation 3.45 % 01/23/17 12:19 Transferrin 352 mg/dl (192-382) 01/23/17 12:19 Ferritin 13.3 ng/mL (13.0-400.0) 01/23/17 12:19 Troponin T < 0.010 ng/mL (0.00-0.029) 01/22/17 00:44 NT-Pro-B Natriuret Pep 2385 pg/mL (0-900) H 01/22/17 00:44 Vitamin B12 230.1 pg/mL (211-911) 01/23/17 12:19 Folate 4.37 ng/mL (7.3-26.0) L 01/23/17 12:19 Urine Color Straw (Yellow) 01/22/17 Unknown Urine Turbidity Clear (Clear) 01/22/17 Unknown Urine pH 5.0 (5.0-7.0) 01/22/17 Unknown Ur Specific [place] 1.021 (1.003-1.030) 01/22/17 Unknown Urine Protein <15 mg/dl mg/dL (Negative) 01/22/17 Unknown Urine Glucose (UA) Neg mg/dL (Negative) 01/22/17 Unknown Urine Ketones Neg mg/dL (Negative) 01/22/17 Unknown Urine Blood Neg (Negative) 01/22/17 Unknown Urine Nitrite Neg (Negative) 01/22/17 Unknown Urine Bilirubin Neg (Negative) 01/22/17 Unknown Urine Urobilinogen < 2.0 mg/dL (<2.0) 01/22/17 Unknown Ur Leukocyte Esterase Neg (Negative) 01/22/17 Unknown Urine WBC (Auto) < 1.0 /HPF (0.0-6.0) 01/22/17 Unknown Urine RBC (Auto) 2.0 /HPF (0.0-6.0) 01/22/17 Unknown U Epithel Cells (Auto) < 1.0 /HPF (0-13.0) 01/22/17 Unknown Urine Mucus Few /HPF 01/22/17 Unknown
[2017-01-26] MEDS ORDERED: NACL 0.9% 500 ML 500 ML IV ONE (09:30)
[2017-01-26] MEDS: FOLVITE PO SCH (11:17)
[2017-01-26] MEDS: COLACE PO SCH ×2 (11:17→22:04)
[2017-01-26] MEDS: COREG PO SCH ×2 (11:17→22:05)
[2017-01-26] MEDS: COZAAR PO SCH (11:19)
[2017-01-26] MEDS: XARELTO PO SCH ×2 (13:07→22:05)
[2017-01-26] MEDS ORDERED: NACL 0.9% 500 ML 500 ML IV NR (14:00)
--- NOTE | 2017-01-26 14:26 | Progress Note ---
Assessment and Plan Assessment and plan: --Anemia; Hemoglobin today 7.1, evidence of bleeding Patient would benefit by 1 unit PRBC transfusion prior to discharge, as patient is on anticoagulation for PE and DVT Continue iron supplements, see REGIONAL ACCOUNT MANAGER for further evaluation of menorrhagia --History of menorrhagia; chronic blood loss; advised to see REGIONAL ACCOUNT MANAGER as outpatient for further evaluation --acute moon pulmonary embolism : on Xeralto , hematology following, Hypercoagulable workup as outpatient, --Bilateral lower extremity DVT Continue current anticoagulation, patient is morbidly obese has bilateral PE and bilateral DVT Vascular evaluated the patient, advised to follow outpatient, agree with anticoagulation --Hypertension; moderate control continue current antihypertensives and when necessary hydralazine --Morbid Obesity; counseling done advised diet modification and exercise as tolerated and weight reduction when medically stable Patient also would benefit from outpatient bariatric surgery evaluation for weight reduction program when medically stable Plan of care discussed with the patient, her nurse case management Patient complains of intermittent shortness of breath ,evaluated for home oxygen Follow H&H, discharge home tomorrow if stable History Interval history: Patient seen and evaluated medical records reviewed Has mild drop in H&H, hemoglobin of 7.1 Patient is on anticoagulation with Xeralto, has history of menorrhagia No evidence of external bleeding Alert awake oriented 3 not in acute distress Hospitalist Physical - Constitutional Vitals: Temp Pulse Resp BP Pulse Ox 98.6 F 81 18 127/65 97 01/26/17 08:00 01/26/17 11:19 01/26/17 08:00 01/26/17 11:19 01/26/17 08:14 General appearance: Present: no acute distress, well-nourished, obese - EENT Eyes: Present: PERRL, EOM intact - Neck Neck: Present: supple, normal ROM - Respiratory Respiratory effort: normal Respiratory: bilateral: diminished, negative: rales, rhonchi, wheezing - Cardiovascular Rhythm: regular Heart Sounds: Present: S1 & S2 - Extremities Extremities: no ischemia, No edema - Abdominal General gastrointestinal: soft, non-tender, non-distended, normal bowel sounds - Integumentary Integumentary: Present: clear, warm - Psychiatric Psychiatric: appropriate mood/affect, cooperative - Neurologic Neurologic: CNII-XII intact, moves all extremities Results - Labs CBC & Chem 7: 01/25/17 06:37 01/25/17 06:37 Labs: Laboratory Last Values WBC 11.7 K/mm3 (4.5-11.0) H 01/25/17 06:37 RBC 4.24 M/mm3 (3.65-5.03) 01/25/17 06:37 Hgb 7.1 gm/dl (10.1-14.3) L 01/25/17 06:37 Hct 25.7 % (30.3-42.9) L 01/25/17 06:37 MCV 61 fl (79-97) L 01/25/17 06:37 MCH 17 pg (28-32) L 01/25/17 06:37 MCHC 28 % (30-34) L 01/25/17 06:37 RDW 20.2 % (13.2-15.2) H 01/25/17 06:37 Plt Count 247 K/mm3 (140-440) 01/25/17 06:37 Lymph % (Auto) 16.1 % (13.4-35.0) 01/25/17 06:37 Norman % (Auto) 5.0 % (0.0-7.3) 01/25/17 06:37 Eos % (Auto) 7.3 % (0.0-4.3) H 01/25/17 06:37 Baso % (Auto) 2.7 % (0.0-1.8) H 01/25/17 06:37 Lymph # 1.9 K/mm3 (1.2-5.4) 01/25/17 06:37 Norman # 0.6 K/mm3 (0.0-0.8) 01/25/17 06:37 Eos # 0.9 K/mm3 (0.0-0.4) H 01/25/17 06:37 Baso # 0.3 K/mm3 (0.0-0.1) H 01/25/17 06:37 Seg Neutrophils % 68.9 % (40.0-70.0) 01/25/17 06:37 Seg Neutrophils # 8.1 K/mm3 (1.8-7.7) H 01/25/17 06:37 Percent Retic 2.33 % (0.78-2.58) 01/23/17 12:19 PT 14.8 Sec. (12.2-14.9) 01/23/17 06:26 INR 1.10 (0.87-1.13) 01/23/17 06:26 APTT 27.2 Sec. (24.2-36.6) 01/22/17 00:44 Sodium 142 mmol/L (137-145) 01/25/17 06:37 Potassium 4.8 mmol/L (3.6-5.0) 01/25/17 06:37 Chloride 103.7 mmol/L (98-107) 01/25/17 06:37 Carbon Dioxide 24 mmol/L (22-30) 01/25/17 06:37 Anion Gap 19 mmol/L 01/25/17 06:37 BUN 27 mg/dL (7-17) H 01/25/17 06:37 Creatinine 1.1 mg/dL (0.7-1.2) 01/25/17 06:37 Estimated GFR > 60 ml/min 01/25/17 06:37 BUN/Creatinine Ratio 24.54 % 01/25/17 06:37 Glucose 115 mg/dL (65-100) H 01/25/17 06:37 Lactic Acid 1.70 mmol/L (0.7-2.0) 01/22/17 00:44 Calcium 9.0 mg/dL (8.4-10.2) 01/25/17 06:37 Magnesium 2.20 mg/dL (1.7-2.3) 01/22/17 00:44 Iron 17 ug/dL (37-170) L 01/23/17 12:19 TIBC 492.80 mcg/dL (250-450) H 01/23/17 12:19 % Saturation 3.45 % 01/23/17 12:19 Transferrin 352 mg/dl (192-382) 01/23/17 12:19 Ferritin 13.3 ng/mL (13.0-400.0) 01/23/17 12:19 Troponin T < 0.010 ng/mL (0.00-0.029) 01/22/17 00:44 NT-Pro-B Natriuret Pep 2385 pg/mL (0-900) H 01/22/17 00:44 Vitamin B12 230.1 pg/mL (211-911) 01/23/17 12:19 Folate 4.37 ng/mL (7.3-26.0) L 01/23/17 12:19 Urine Color Straw (Yellow) 01/22/17 Unknown Urine Turbidity Clear (Clear) 01/22/17 Unknown Urine pH 5.0 (5.0-7.0) 01/22/17 Unknown Ur Specific [place] 1.021 (1.003-1.030) 01/22/17 Unknown Urine Protein <15 mg/dl mg/dL (Negative) 01/22/17 Unknown Urine Glucose (UA) Neg mg/dL (Negative) 01/22/17 Unknown Urine Ketones Neg mg/dL (Negative) 01/22/17 Unknown Urine Blood Neg (Negative) 01/22/17 Unknown Urine Nitrite Neg (Negative) 01/22/17 Unknown Urine Bilirubin Neg (Negative) 01/22/17 Unknown Urine Urobilinogen < 2.0 mg/dL (<2.0) 01/22/17 Unknown Ur Leukocyte Esterase Neg (Negative) 01/22/17 Unknown Urine WBC (Auto) < 1.0 /HPF (0.0-6.0) 01/22/17 Unknown Urine RBC (Auto) 2.0 /HPF (0.0-6.0) 01/22/17 Unknown U Epithel Cells (Auto) < 1.0 /HPF (0-13.0) 01/22/17 Unknown Urine Mucus Few /HPF 01/22/17 Unknown Blood Type A POSITIVE 01/26/17 09:39 Antibody Screen TNR 01/26/17 09:39 FAISAL Antibody Screen Negative 01/26/17 09:39 Crossmatch See Detail 01/26/17 09:39
[2017-01-26] MEDS: FEOSOL PO SCH ×3 (16:06→22:04)
[2017-01-26] MEDS: PERCOCET 5/325 PO PRN (20:26)
[2017-01-27 06:46] LABS: Basophils % (Auto) 0.4 % (0.0-1.8); Eosinophils % (Auto) 4.6 % (0.0-4.3); Mean Corpuscular HGB Conc 29 % (30-34); Platelet Count 246 K/mm3 (140-440); Red Blood Count 4.48 M/mm3 (3.65-5.03); White Blood Count 12.1 K/mm3 (4.5-11.0)
[2017-01-27 06:47] LABS: Hemoglobin 8.1 gm/dl (10.1-14.3); Mean Corpuscular Hemoglobin 18 pg (28-32); Mean Corpuscular Volume 62 fl (79-97); Red Cell Distribution Width 21.8 % (13.2-15.2)
--- NOTE | 2017-01-27 07:41 | Discharge Summary ---
Providers - Providers Date of Admission: 01/22/17 02:11 Date of discharge: 01/27/17 Attending physician: LAURA VILLAREAL 01/22/17 09:40 Consult to Physician [CONS] Routine Consulting Provider: STEPHENIE MORALES Reason For Exam: Roberto PE Place consult to:: Rubi Notified:: Office Phone number called:: [phone] Was contact made?: Yes If yes, spoke with:: Gwendolyn Walker called:: 10:38 01/23/17 16:59 Consult to Physician [CONS] Routine Consulting Provider: DEREK WALKER Reason For Exam: bilateral LE acute DVT and Roberto PE Place consult to:: vascular Notified:: a service Phone number called:: [phone] Was contact made?: Yes If yes, spoke with:: Dr Koenig Time called:: 17:35 01/25/17 17:06 Physical Therapy Evaluation and Treat [CONS] Routine Comment: Reason For Exam: Assess, eval, arrange PT for post discharge Primary care physician: CLIENT LIAISON Hospitalization Reason for admission: worsening shortness of breath/bilateral PE Condition: Stable Pertinent studies: Chest x-ray CTA chest; bilateral PE in the mid and distal branches no saddle thrombus Lower extremity venous Doppler; bilateral lower extremity DVT Hospital course: Discharge diagnosis; Bilateral PE Bilateral lower extremity DVT Anemia iron deficiency History of menorrhagia Morbid obesity Hypertension Menorrhagia chronic iron deficiency anemia was admitted through emergency room with worsening shortness of breath of one-week duration, evaluated noted to have bilateral PE Admitted to the hospital initially started on full dose Lovenox, evaluated by senior media director Placed on Xeralto protocol Lower extremity venous Doppler positive for bilateral DVT, vascular evaluated the patient no surgical intervention Advised to follow with them in the office Also has history of menorrhagia and iron deficiency anemia, treated with iron supplements and received 1 unit of PRBC, patient strongly advised to see PATIENT CASE MANAGER as outpatient for further evaluation and management of menorrhagia Today she is comfortable in bed no complaints vital signs are stable Physical examination unremarkable Ambulatory room air oxygen saturation, resting room air oxygen saturation were more than 95% no indication of home oxygen Counseled the importance of adhering to the treatment plan, advised dietary modification and exercise as tolerated and weight reduction when medically stable Advised to see bariatric surgery consult and further evaluation for weight reduction program and medically stable Disposition: DC-30 STILL A PATIENT Time spent for discharge: 35 min Core Measure Documentation - Palliative Care Palliative Care/ Comfort Measures: Not Applicable - Core Measures Any of the following diagnoses?: DVT/PE - VTE Discharge Requirements Deep Vein Thrombosis/Pulmonary Embolism Present on Admission: Yes Has pt received <5 days of overlap therapy or INR<2.0: Yes Anticoagulant overlap therapy prescribed at discharge: No Contraindication No Overlap Therapy order at DC: Not Indicated (Patient on Xeralto) Exam - Constitutional Vitals: Temp Pulse Resp BP Pulse Ox 98.3 F 0 L 18 0/0 96 01/27/17 06:02 01/27/17 06:02 01/27/17 06:02 01/27/17 06:02 01/27/17 06:02 General appearance: Present: no acute distress, well-nourished, obese (morbidly obese) - EENT Eyes: Present: PERRL, EOM intact - Neck Neck: Present: supple, normal ROM - Respiratory Respiratory effort: normal Respiratory: bilateral: diminished, rales, negative: rhonchi, wheezing - Cardiovascular Rhythm: regular Heart Sounds: Present: S1 & S2 - Extremities Extremities: no ischemia, No edema - Abdominal General gastrointestinal: Present: soft, non-tender, non-distended, normal bowel sounds - Integumentary Integumentary: Present: clear, warm - Musculoskeletal Musculoskeletal: strength equal bilaterally - Psychiatric Psychiatric: appropriate mood/affect, cooperative - Neurologic Neurologic: CNII-XII intact, moves all extremities Plan Activity: no restrictions Diet: low salt Additional Instructions: If you notice any bleeding, stop xeralto and contact M.D. If we have any chest pain or shortness of breath, contact M.D., or go to emergency room Follow up with: STEPHENIE MORALES MD [Staff Physician] - 7 Days PRIMARY CARE, [Primary Care Provider] - 3-5 Days Prescriptions: Carvedilol [Coreg] 12.5 mg PO BID #60 tablet Docusate Sodium [Colace CAP] 100 mg PO BID PRN #20 capsule PRN Reason: Constipation Ferrous Sulfate [Feosol 325 MG tab] 325 mg PO TID #90 tablet Folic Acid [Folvite] 1 mg PO QDAY #30 tablet Losartan [Cozaar] 100 mg PO QDAY #30 tablet Oxycodone HCl/Acetaminophen [Percocet 7.5/325 mg] 1 each PO BID PRN #20 tablet PRN Reason: Pain Rivaroxaban [Xarelto] 15 mg PO BIDDIAB #34 tablet Rivaroxaban [Xarelto] 20 mg PO DAILY #15 tablet
[2017-01-27 08:21] VITALS: BP 126/73
[2017-01-27] MEDS: FEOSOL PO SCH (09:35)
[2017-01-27] MEDS: XARELTO PO SCH (09:35)
[2017-01-27] MEDS: COLACE PO SCH (09:36)
[2017-01-27] MEDS: FOLVITE PO SCH (09:36)
[2017-01-27] MEDS: COZAAR PO SCH (09:36)
[2017-01-27] MEDS: COREG PO SCH (09:36)
[2017-02-14] MEDS ORDERED: XARELTO PO SCH (10:00)
== END 2017-01-27 10:12 | disposition home or self-care (01) | DRG 299 ==
LOC: ED 00:08 → 4A 02:11
PROVIDERS: ADMIT Internal Medicine; ATTEND Internal Medicine
PROC: 3E0234Z Introduction of Serum, Toxoid and Vaccine into Muscle, Percutaneous Approach (ICD-10-PCS; 2017-01-22)
PROC: 30233N1 Transfusion of Nonautologous Red Blood Cells into Peripheral Vein, Percutaneous Approach (ICD-10-PCS; principal; 2017-01-26)
DX: I82.433 Acute embolism and thrombosis of popliteal vein, bilateral (principal); I26.99 Other pulmonary embolism without acute cor pulmonale; Z68.44 Body mass index [BMI] 60.0-69.9, adult; I10 Essential (primary) hypertension; D50.9 Iron deficiency anemia, unspecified; D50.0 Iron deficiency anemia secondary to blood loss (chronic); E66.01 Morbid (severe) obesity due to excess calories; Z90.49 Acquired absence of other specified parts of digestive tract; Z71.3 Dietary counseling and surveillance; Z23 Encounter for immunization; Z80.3 Family history of malignant neoplasm of breast; Z80.41 Family history of malignant neoplasm of ovary
CPT/HCPCS: 36415; 71010; 71275; 80048; 81001; 82140; 82607; 82728; 82747; 83550; 83735; 83880; 84484; 85025; 85045; 85610; 85730; 86850; 86900; 86901; 86920; 90732; 93005; 93010; 93970; 94760; 96372; 96374; 96375; 99285; J1650; J1940; J2930; J7040; P9016; Q9967

== ENCOUNTER 2017-02-26 21:45 | Inpatient (IN) | payer OTHER ==
[2017-02-26 22:42] LABS: Mean Corpuscular HGB Conc 30 % (30-34); Mean Corpuscular Volume 73 fl (79-97); Platelet Count 228 K/mm3 (140-440); Red Blood Count 4.88 M/mm3 (3.65-5.03); White Blood Count 7.7 K/mm3 (4.5-11.0)
[2017-02-26 22:43] LABS: Hematocrit 35.5 % (30.3-42.9); Hemoglobin 10.6 gm/dl (10.1-14.3); Mean Corpuscular Hemoglobin 22 pg (28-32); Red Cell Distribution Width 31.3 % (13.2-15.2)
[2017-02-26 22:50] LABS: INR 1.56 (0.87-1.13); Partial Thromboplastin Time 34.6 Sec. (24.2-36.6)
[2017-02-26 23:12] LABS: Anion Gap 16 mmol/L; Blood Urea Nitrogen 8 mg/dL (7-17); Carbon Dioxide 25 mmol/L (22-30); Chloride 103.1 mmol/L (98-107); Glucose 102 mg/dL (65-100); Potassium 4.1 mmol/L (3.6-5.0); Sodium 140 mmol/L (137-145)
[2017-02-26 23:43] LABS: Anisocytosis 2+; Basophils % (Manual) 0 % (0.0-1.8); Blastocytes % (Manual) 0 %; Eosinophils % (Manual) 0 % (0.0-4.3); Hypochromasia 2+
[2017-02-26 23:44] LABS: Diff Status Complete
--- NOTE | 2017-02-26 23:50 | Emergency Department Report ---
ED Chest Pain HPI - General Chief Complaint: Chest Pain Stated Complaint: CHEST PAIN Time Seen by Provider: 02/26/17 23:37 Source: patient, EMS Mode of arrival: Stretcher Limitations: No Limitations - History of Present Illness Initial Comments: 51 years old female coming today with chest pain started 3 days ago,describes her pain as central sharp increases with inspiration associated with shortness of breath and nonproductive cough. Denied any fever nausea vomiting. Patient was diagnosed with bilateral PE last month she is on Xorellta, she stated that she has been taking her medication every day and she did not is skip any dose. MD Complaint: chest pain -: days(s) (3 days) Onset: during rest Pain Location: substernal Severity scale (0 -10): 0 Quality: sharp Worsens With: inspiration Other Symptoms: cough. denies: fever, syncope - Related Data Home Medications Medication Instructions Recorded Confirmed Last Taken Potassium Chloride [K-Dur] 10 meq PO QDAY 02/26/17 02/26/17 02/26/17 Previous Rx's Medication Instructions Recorded Last Taken Type Carvedilol [Coreg] 12.5 mg PO BID #60 tablet 01/27/17 02/26/17 Rx Docusate Sodium [Colace CAP] 100 mg PO BID PRN #20 capsule 01/27/17 02/26/17 Rx Ferrous Sulfate [Feosol 325 MG tab] 325 mg PO TID #90 tablet 01/27/17 02/26/17 Rx Folic Acid [Folvite] 1 mg PO QDAY #30 tablet 01/27/17 02/26/17 Rx Losartan [Cozaar] 100 mg PO QDAY #30 tablet 01/27/17 02/26/17 Rx Rivaroxaban [Xarelto] 20 mg PO DAILY #15 tablet 01/27/17 02/26/17 Rx Allergies Allergy/AdvReac Type Severity Reaction Status Date / Time No Known Allergies Allergy Verified 01/22/17 03:08 Heart Score - HEART Score History: Moderately suspicious EKG: Non-specific Age: 45-65 Risk factors: 1-2 risk factors Troponin: < normal limit HEART Score: 4 - Critical Actions Critical Actions: 4-6 pts:12-16.6% risk of adverse cardiac event. Should be admitted ED Review of Systems ROS: Stated complaint: CHEST PAIN Other details as noted in HPI Comment: All other systems reviewed and negative Constitutional: denies: chills, fever Respiratory: cough, shortness of breath Cardiovascular: chest pain. denies: palpitations Gastrointestinal: denies: abdominal pain, nausea Neurological: denies: headache ED Past Medical Hx - Past Medical History Previous Medical History?: Yes Hx Hypertension: Yes Hx Congestive Heart Failure: Yes Hx Diabetes: No Hx Pulmonary Embolism: Yes Hx Asthma: No Hx COPD: No Additional medical history: ANEMIA - Surgical History Past Surgical History?: Yes Hx Cholecystectomy: Yes - Social History Smoking Status: Never Smoker Substance Use Type: None - Medications Home Medications: Home Medications Medication Instructions Recorded Confirmed Last Taken Type Carvedilol [Coreg] 12.5 mg PO BID #60 tablet 01/27/17 02/26/17 02/26/17 Rx Docusate Sodium [Colace CAP] 100 mg PO BID PRN #20 capsule 01/27/17 02/26/17 Rx Ferrous Sulfate [Feosol 325 MG tab] 325 mg PO TID #90 tablet 01/27/17 02/26/17 02/26/17 Rx Folic Acid [Folvite] 1 mg PO QDAY #30 tablet 01/27/17 02/26/17 02/26/17 Rx Losartan [Cozaar] 100 mg PO QDAY #30 tablet 01/27/17 02/26/17 02/26/17 Rx Rivaroxaban [Xarelto] 20 mg PO DAILY #15 tablet 01/27/17 02/26/17 02/26/17 Rx Potassium Chloride [K-Dur] 10 meq PO QDAY 02/26/17 02/26/17 02/26/17 History ED Physical Exam - General Limitations: No Limitations General appearance: alert - Head Head exam: Present: atraumatic - Eye Eye exam: Present: normal appearance - ENT ENT exam: Present: normal exam - Neck Neck exam: Present: normal inspection - Respiratory Respiratory exam: Present: normal lung sounds bilaterally - Cardiovascular Cardiovascular Exam: Present: regular rate, normal rhythm, normal heart sounds - GI/Abdominal GI/Abdominal exam: Present: soft. Absent: distended, tenderness, guarding, rebound, rigid - Back Exam Back exam: Present: normal inspection. Absent: CVA tenderness (R), CVA tenderness (L) - Neurological Exam Neurological exam: Present: alert, oriented X3, CN II-XII intact - Skin Skin exam: Present: warm ED Course Vital Signs 02/26/17 02/26/17 02/26/17 21:56 22:01 22:04 Temperature 98.4 F Pulse Rate 72 Respiratory 18 Rate Blood Pressure 182/92 Blood Pressure 176/99 [Right] O2 Sat by Pulse 96 96 Oximetry 02/26/17 02/26/17 02/27/17 23:04 23:05 01:00 Temperature Pulse Rate 62 67 Respiratory 14 16 18 Rate Blood Pressure Blood Pressure 153/75 147/66 [Right] O2 Sat by Pulse 91 97 99 Oximetry - Reevaluation(s) Reevaluation #1: 02/27/17 01:[address] Rere Price for admission she accepted the patient to her service ED Medical Decision Making - Lab Data Result diagrams: 02/26/17 22:19 02/26/17 22:19 Critical care attestation.: If time is entered above; I have spent that time in minutes in the direct care of this critically ill patient, excluding procedure time. ED Disposition Clinical Impression: Pulmonary embolism Disposition: OP ADMIT IP TO THIS HOSP Is pt being admited?: Yes Condition: Stable Referrals: PRIMARY CARE, [Primary Care Provider] - 3-5 Days
[2017-02-27] MEDS ORDERED: NACL ONE (00:18)
--- NOTE | 2017-02-27 01:20 | Cat Scan Report ---
FINAL REPORT PROCEDURE: CT ANGIO CHEST TECHNIQUE: Computerized tomographic angiography of the chest was performed during the IV injection of iodinated nonionic contrast including image processing. The image data was postprocessed using 2-dimensional multiplanar reformatted (MPR) and 3-dimensional (MIP and/or volume rendered) techniques. HISTORY: CHEST PAIN WITH SYNCOPE COMPARISON: Prior CT scan of the chest 01/22/2017 FINDINGS: Pulmonary outflow tract, right and left main pulmonary arteries and their proximal branches: The pulmonary outflow tract right and left main pulmonary arteries are filling appropriately the exception of a filling defect in 1 of the branches of the right lower lobe pulmonary artery seen on image 53 series 3 axial image. This is also visualized on coronal reconstruction image 95 series 202. No other pulmonary emboli are visualized. Pericardium: No evidence of pericardial effusion. Thoracic aorta: Atherosclerotic changes are visualized. No aneurysm or dissection is seen. Coronary arteries: Are unremarkable. Mediastinum and hilar regions: Nonspecific subcentimeter lymph nodes are visualized. No pathologically enlarged lymph nodes or masses are identified. Lung Casanova: There is a small amount of dependent atelectasis visualized bilaterally. Lung casanova otherwise are clear. Upper abdomen: No acute or focal abnormality is seen. Other: No acute bony abnormalities are identified. IMPRESSION: Small filling defect visualized in 1 of the branches of the right lower lobe pulmonary artery as described consistent with a small pulmonary embolus. This is much smaller than on the prior study performed 01/22/2017. The differential would include small residual PE from the previous large pulmonary emboli versus a new acute pulmonary embolus.. The remainder of the pulmonary emboli seen on the prior study have resolved. Small amount of dependent atelectasis visualized. No other abnormalities are seen.
[2017-02-27] MEDS ORDERED: MILK OF MAGNESIA PO PRN (02:12)
[2017-02-27] MEDS ORDERED: DULCOLAX PR PRN (02:12)
[2017-02-27] MEDS ORDERED: MORPHINE IV PRN (02:12)
[2017-02-27] MEDS ORDERED: ZOFRAN IV PRN (02:12)
--- NOTE | 2017-02-27 02:12 | History and Physical Report ---
History of Present Illness Date of examination: 02/27/17 History of present illness: 51-year-old line was diagnosed with DVT and pulmonary emboli last month, and throat gums emergency room with complaints of chest pain. Pain is pleuritic, intermittent, intensity 8/10, feels like her last pulmonary emboli, worse with coughing and shortness of breath. Patient states compliant with the relative, not sedentary at home, no recent travel Review Of Systems: Constitutional: no weight loss Ears, eyes, nose, mouth and throat: no nasal congestion, no nasal discharge, no sinus pressure, blurry vision, diplopia Neck: No neck pain or rigidity. Cardiovascular: orthopnea, palpitations Respiratory: No shortness of breath, cough Gastrointestinal: abdominal pain, hematochezia Genitourinary : no dysuria, frequency , hematuria Musculoskeletal: no muscle ache Integumentary: no rash, no pruritis Neurological: no parathesias, focal weakness Endocrine: no cold or heat intolerance, no polyuria or polydipsia Hematologic/Lymphatic: no easy bruising, no easy bleeding, no gland swelling Allergic/Immunologic: no urticaria, no angioedema. PAST MEDICAL HISTORY:DVT and pulmonary emboli PAST SURGICAL HISTORY: Cholecystectomy FAILY HISTORY: Hypertension SOCIAL HISTORY: Denies alcohol , tobacco, drugs Medications and Allergies Allergies Allergy/AdvReac Type Severity Reaction Status Date / Time No Known Allergies Allergy Verified 01/22/17 03:08 Home Medications Medication Instructions Recorded Confirmed Last Taken Type Carvedilol [Coreg] 12.5 mg PO BID #60 tablet 01/27/17 02/26/17 02/26/17 Rx Docusate Sodium [Colace CAP] 100 mg PO BID PRN #20 capsule 01/27/17 02/26/17 Rx Ferrous Sulfate [Feosol 325 MG tab] 325 mg PO TID #90 tablet 01/27/17 02/26/17 02/26/17 Rx Folic Acid [Folvite] 1 mg PO QDAY #30 tablet 01/27/17 02/26/17 02/26/17 Rx Losartan [Cozaar] 100 mg PO QDAY #30 tablet 01/27/17 02/26/17 02/26/17 Rx Rivaroxaban [Xarelto] 20 mg PO DAILY #15 tablet 01/27/17 02/26/17 02/26/17 Rx Potassium Chloride [K-Dur] 10 meq PO QDAY 02/26/17 02/26/17 02/26/17 History Exam - Physical Exam Narrative exam: Gen. appearance: Patient lying in bed in no acute distress HEENT: Normocephalic/atraumatic, pupils equal round reactive to light, extra alkaline movement intact, no scleral icterus, no JVD or thyromegaly or nodule, neck is supple, mucous membrane moist, no erythema or exudate Heart: S1-S2, regular rate and rhythm Lungs: Clear to auscultation bilateral breathing comfortable Abdomen: Positive bowel sounds, nontender, nondistended, no organomegaly Extremities: No edema, cyanosis, clubbing Neuro:: Oriented 3 , cranial nerves II-12 intact, speech, motor intact Skin: No rash, nodules, warm dry - Constitutional Vitals: Temp Pulse Resp BP Pulse Ox 98.4 F 68 18 150/93 95 02/26/17 21:56 02/27/17 01:50 02/27/17 01:50 02/27/17 01:50 02/27/17 01:50 Results - Labs CBC & Chem 7: 02/26/17 22:19 02/26/17 22:19 Labs: Abnormal lab results 02/26/17 02/26/17 02/26/17 Range/Units 22:19 22:19 22:19 MCV 73 L (79-97) fl MCH 22 L (28-32) pg RDW 31.3 H (13.2-15.2) % PT 18.6 H (12.2-14.9) Sec. INR 1.56 H (0.87-1.13) Glucose 102 H (65-100) mg/dL - Imaging and Cardiology EKG: image reviewed Chest x-ray: image reviewed CT scan - chest: report reviewed Assessment and Plan Assessment Acute on chronic pulmonary emboli History of DVT Plan Elisabet also, start full dose Lovenox, consult cardiology May need to be in Coumadin
[2017-02-27] MEDS ORDERED: LOVENOX SUB-Q ONE ×5 (02:18→03:00)
[2017-02-27] MEDS ORDERED: PERCOCET 5/325 PO PRN (12:57)
--- NOTE | 2017-02-27 12:57 | Event Note ---
Date: 02/27/17 PATIENT SEEN AND EXAMINED, GENERALIZED TENDERNESS. PAIN CONTROL CONTINUE CURRENT THERAPY.
--- NOTE | 2017-02-27 13:46 | Consultation ---
History of Present Illness Consult date: 02/27/17 Consult reason: chest pain History of present illness: Patient is a 51-year-old woman with history of obesity, recent history of pulmonary embolism on Xarelto. She is admitted to this hospital with recurrent pleuritic chest pain, and the CT angiogram of the chest demonstrated possible new pulmonary emboli. She is admitted for review of ongoing anticoagulant therapy for optimal management of her pulmonary embolism. Cardiac consultation was requested for "PE". On review, the patient denies any prior cardiac history. ECG is normal sinus rhythm with inferolateral T-wave abnormalities, which appeared to be somewhat labile when compared with her previous ECGs. Comorbidities include hypertension which appears persistent. Her systolic blood pressure during this admission has remained 160-170s systolic, patient is not on significant antihypertensive therapy. Past History Past Medical History: hypertension, other (PE) Medications and Allergies Allergies Allergy/AdvReac Type Severity Reaction Status Date / Time No Known Allergies Allergy Verified 01/22/17 03:08 Home Medications Medication Instructions Recorded Confirmed Last Taken Type Carvedilol [Coreg] 12.5 mg PO BID #60 tablet 01/27/17 02/26/17 02/26/17 Rx Docusate Sodium [Colace CAP] 100 mg PO BID PRN #20 capsule 01/27/17 02/26/17 Rx Ferrous Sulfate [Feosol 325 MG tab] 325 mg PO TID #90 tablet 01/27/17 02/26/17 02/26/17 Rx Folic Acid [Folvite] 1 mg PO QDAY #30 tablet 01/27/17 02/26/17 02/26/17 Rx Losartan [Cozaar] 100 mg PO QDAY #30 tablet 01/27/17 02/26/17 02/26/17 Rx Rivaroxaban [Xarelto] 20 mg PO DAILY #15 tablet 01/27/17 02/26/17 02/26/17 Rx Potassium Chloride [K-Dur] 10 meq PO QDAY 02/26/17 02/26/17 02/26/17 History Active Meds: Active Medications Acetaminophen (Tylenol) 650 mg PO Q4H PRN PRN Reason: Pain MILD(1-3)/Fever >100.5/TALAMANTES Bisacodyl (Dulcolax) 10 mg MN QDAY PRN PRN Reason: Constipation unrelieved by MOM Ketorolac Tromethamine (Toradol) 15 mg IV Q8H PRN PRN Reason: Pain Stop: 03/04/17 12:59 Magnesium Hydroxide (Milk Of Magnesia) 30 ml PO Q4H PRN PRN Reason: Constipation Morphine Sulfate (Morphine) 2 mg IV Q4H PRN PRN Reason: Pain, Moderate (4-6) Last Admin: 02/27/17 08:32 Dose: 2 mg Ondansetron HCl (Zofran) 4 mg IV Q8H PRN PRN Reason: N/V unrelieved by Reglan Review of Systems Cardiovascular: chest pain, shortness of breath, no orthopnea, no palpitations, no rapid/irregular heart beat, no edema, no syncope, no lightheadedness Physical Examination Vital Signs Temp Pulse BP Pulse Ox 98.4 F 72 182/92 96 02/26/17 21:56 02/26/17 21:56 02/26/17 21:56 02/26/17 21:56 General appearance: no acute distress, obese HEENT: Positive: PERRL Neck: Positive: neck supple Cardiac: Positive: Reg Rate and Rhythm Lungs: Positive: Decreased Breath Sounds Neuro: Positive: Grossly Intact Abdomen: Positive: Soft Female genitourinary: deferred Skin: Positive: Clear Extremities: Absent: edema Results 02/26/17 22:19 02/26/17 22:19 EKG interpretations - Telemetry EKG Rhythm: Sinus Rhythm Assessment and Plan - Patient Problems (1) Pulmonary embolism Current Visit: Yes Status: Acute Qualifiers: Pulmonary embolism type: P Chronicity: C Acute cor pulmonale presence: A Plan to address problem: I would recommend further management of pulmonary embolism and associated anticoagulation therapy to the pulmonary service. (2) Abnormal ECG Current Visit: Yes Status: Acute Plan to address problem: T-wave changes on the EKG could be secondary to hypertension, but RV strain due to pulmonary embolism or cardiac ischemia will need to be in the differential diagnosis. We will get an echocardiogram for left ventricular function and right ventricular function assessment. Electively either predischarge or as outpatient, patient will be recommended for cardiac ischemia assessment with a thallium stress test. (3) Hypertension Current Visit: No Status: Chronic Qualifiers: Hypertension type: essential hypertension Qualified Code(s): I10 - Essential (primary) hypertension Plan to address problem: Hypertension is uncontrolled. Patient was ostensibly on losartan at home that was not continued in-hospital. We will resume losartan at 100 mg daily, and monitor blood pressure management on this regimen.
[2017-02-27] MEDS: COZAAR PO SCH (14:39)
[2017-02-27] MEDS: TORADOL IV PRN (18:45)
[2017-02-28] MEDS: COZAAR PO SCH (09:10)
[2017-02-28 09:23] LABS: Mean Corpuscular HGB Conc 30 % (30-34); Mean Corpuscular Volume 73 fl (79-97); Platelet Count 216 K/mm3 (140-440); Red Blood Count 4.69 M/mm3 (3.65-5.03); White Blood Count 5.5 K/mm3 (4.5-11.0)
[2017-02-28 09:24] LABS: Hematocrit 34.5 % (30.3-42.9); Hemoglobin 10.2 gm/dl (10.1-14.3); Mean Corpuscular Hemoglobin 22 pg (28-32); Red Cell Distribution Width 30.7 % (13.2-15.2)
[2017-02-28 09:39] LABS: Anion Gap 16 mmol/L; Blood Urea Nitrogen 8 mg/dL (7-17); Calcium 8.7 mg/dL (8.4-10.2); Carbon Dioxide 27 mmol/L (22-30); Chloride 98.7 mmol/L (98-107); Glucose 80 mg/dL (65-100); Potassium 3.8 mmol/L (3.6-5.0); Sodium 138 mmol/L (137-145)
[2017-02-28 11:19] LABS: Basophils % (Manual) 0 % (0.0-1.8); Blastocytes % (Manual) 0 %
[2017-02-28 11:20] LABS: Anisocytosis 1+; Diff Status Complete; Hypochromasia 1+; Platelet Estimate Consistent w Auto
--- NOTE | 2017-02-28 12:27 | Progress Note ---
Assessment and Plan Assessment and plan: 51-year-old line was diagnosed with DVT and pulmonary emboli last month, and throat [facility]ums emergency room with complaints of chest pain. Pain is pleuritic, intermittent, intensity 8/10, feels like her last pulmonary emboli, worse with coughing and shortness of breath. Patient states compliant with the relative, not sedentary at home, no recent travel Atypical Chest pain with Pleurtic component also reproducible Chronic pulmonary emboli DVT HTN Abnormal EKG Morbidly obese Plan: * Continue supportive care * Cardiology input noted. Echo and Stress test when Ok with cardiology * Losartan for BP control. Add hctz for better control. Patient to monitor and keep a BP diary. * Weight loss modalities discussed in detail. * Continue coumadin * DVT/GI prophy History Interval history: Patient seen and examined today reports remarkable improvement denies any headache denies any nausea vomiting or diarrhea denies any chest pain at this time. Hospitalist Physical - Physical exam Narrative exam: VITAL SIGNS: Reviewed. GENERAL: The patient appeared well nourished and normally developed. Morbidly obese. Vital signs as documented. HEAD: No signs of head trauma. EYES: Pupils are equal. Extraocular motions intact. EARS: Hearing grossly intact. MOUTH: Oropharynx is normal. NECK: No adenopathy, no JVD. CHEST: Chest with clear breath sounds bilaterally. No wheezes, rales, or rhonchi. CARDIAC: Regular rate and rhythm. S1 and S2, without murmurs, gallops, or rubs. VASCULAR: No Edema. Peripheral pulses normal and equal in all extremities. ABDOMEN: Soft, without detectable tenderness. No sign of distention. No rebound or guarding, and no masses palpated. Bowel Sounds normal. MUSCULOSKELETAL: Good range of motion of all major joints. Extremities without clubbing, cyanosis or edema. NEUROLOGIC EXAM: Alert and oriented x 3. No focal sensory or strength deficits. Speech normal. Follows commands. PSYCHIATRIC: Mood normal. SKIN: No rash or lesions. - Constitutional Vitals: Temp Pulse Resp BP Pulse Ox 98.3 F 56 L 18 163/79 95 02/28/17 09:14 02/28/17 09:14 02/28/17 09:14 02/28/17 09:14 02/28/17 09:14 General appearance: Present: no acute distress, obese Results - Labs CBC & Chem 7: 02/28/17 08:33 08/27/17 08:33 Labs: Laboratory Last Values WBC 5.5 K/mm3 (4.5-11.0) 02/28/17 08:33 RBC 4.69 M/mm3 (3.65-5.03) 02/28/17 08:33 Hgb 10.2 gm/dl (10.1-14.3) 02/28/17 08:33 Hct 34.5 % (30.3-42.9) 02/28/17 08:33 MCV 73 fl (79-97) L 02/28/17 08:33 MCH 22 pg (28-32) L 02/28/17 08:33 MCHC 30 % (30-34) 02/28/17 08:33 RDW 30.7 % (13.2-15.2) H 02/28/17 08:33 Plt Count 216 K/mm3 (140-440) 02/28/17 08:33 Add Manual Diff Complete 02/28/17 08:33 Total Counted 100 02/28/17 08:33 Seg Neuts % (Manual) 70.0 % (40.0-70.0) 02/28/17 08:33 Band Neutrophils % 0 % 02/28/17 08:33 Lymphocytes % (Manual) 20.0 % (13.4-35.0) 02/28/17 08:33 Reactive Lymphs % (Man) 0 % 02/28/17 08:33 Monocytes % (Manual) 4.0 % (0.0-7.3) 02/28/17 08:33 Eosinophils % (Manual) 6.0 % (0.0-4.3) H 02/28/17 08:33 Basophils % (Manual) 0 % (0.0-1.8) 02/28/17 08:33 Metamyelocytes % 0 % 02/28/17 08:33 Myelocytes % 0 % 02/28/17 08:33 Promyelocytes % 0 % 02/28/17 08:33 Blast Cells % 0 % 02/28/17 08:33 Nucleated RBC % Not Reportable 02/28/17 08:33 Seg Neutrophils # Man 3.9 K/mm3 (1.8-7.7) 02/28/17 08:33 Band Neutrophils # 0.0 K/mm3 02/28/17 08:33 Lymphocytes # (Manual) 1.1 K/mm3 (1.2-5.4) L 02/28/17 08:33 Abs React Lymphs (Man) 0.0 K/mm3 02/28/17 08:33 Monocytes # (Manual) 0.2 K/mm3 (0.0-0.8) 02/28/17 08:33 Eosinophils # (Manual) 0.3 K/mm3 (0.0-0.4) 02/28/17 08:33 Basophils # (Manual) 0.0 K/mm3 (0.0-0.1) 02/28/17 08:33 Metamyelocytes # 0.0 K/mm3 02/28/17 08:33 Myelocytes # 0.0 K/mm3 02/28/17 08:33 Promyelocytes # 0.0 K/mm3 02/28/17 08:33 Blast Cells # 0.0 K/mm3 02/28/17 08:33 WBC Morphology Not Reportable 02/28/17 08:33 Hypersegmented Neuts Not Reportable 02/28/17 08:33 Hyposegmented Neuts Not Reportable 02/28/17 08:33 Hypogranular Neuts Not Reportable 02/28/17 08:33 Smudge Cells Not Reportable 02/28/17 08:33 Toxic Granulation Not Reportable 02/28/17 08:33 Toxic Vacuolation Not Reportable 02/28/17 08:33 Dohle Bodies Not Reportable 02/28/17 08:33 Pelger-Huet Anomaly Not Reportable 02/28/17 08:33 Kendell Rods Not Reportable 02/28/17 08:33 Platelet Estimate Consistent w auto 02/28/17 08:33 Clumped Platelets Not Reportable 02/28/17 08:33 Plt Clumps, EDTA Not Reportable 02/28/17 08:33 Large Platelets Not Reportable 02/28/17 08:33 Giant Platelets Not Reportable 02/28/17 08:33 Platelet Satelliting Not Reportable 02/28/17 08:33 Plt Morphology Comment Not Reportable 02/28/17 08:33 RBC Morphology Not Reportable 02/28/17 08:33 Dimorphic RBCs Not Reportable 02/28/17 08:33 Polychromasia Not Reportable 02/28/17 08:33 Hypochromasia 1+ 02/28/17 08:33 Poikilocytosis Not Reportable 02/28/17 08:33 Anisocytosis 1+ 02/28/17 08:33 Microcytosis Not Reportable 02/28/17 08:33 Macrocytosis Not Reportable 02/28/17 08:33 Spherocytes Not Reportable 02/28/17 08:33 Pappenheimer Bodies Not Reportable 02/28/17 08:33 Sickle Cells Not Reportable 02/28/17 08:33 Target Cells Not Reportable 02/28/17 08:33 Tear Drop Cells Not Reportable 02/28/17 08:33 Ovalocytes Not Reportable 02/28/17 08:33 Helmet Cells Not Reportable 02/28/17 08:33 [place] Bodies Not Reportable 02/28/17 08:33 [place] Rings Not Reportable 02/28/17 08:33 [place] Cells Not Reportable 02/28/17 08:33 Bite Cells Not Reportable 02/28/17 08:33 Crenated Cell Not Reportable 02/28/17 08:33 Elliptocytes Not Reportable 02/28/17 08:33 Acanthocytes (Spur) Not Reportable 02/28/17 08:33 Rouleaux Not Reportable 02/28/17 08:33 Hemoglobin C Crystals Not Reportable 02/28/17 08:33 Schistocytes Not Reportable 02/28/17 08:33 Malaria parasites Not Reportable 02/28/17 08:33 Power Bodies Not Reportable 02/28/17 08:33 Hem Pathologist Commnt No 02/28/17 08:33 PT 18.6 Sec. (12.2-14.9) H 02/26/17 22:19 INR 1.56 (0.87-1.13) H 02/26/17 22:19 APTT 34.6 Sec. (24.2-36.6) 02/26/17 22:19 Sodium 138 mmol/L (137-145) 02/28/17 08:33 Potassium 3.8 mmol/L (3.6-5.0) 02/28/17 08:33 Chloride 98.7 mmol/L (98-107) 02/28/17 08:33 Carbon Dioxide 27 mmol/L (22-30) 02/28/17 08:33 Anion Gap 16 mmol/L 08/27/17 08:33 BUN 8 mg/dL (7-17) 02/28/17 08:33 Creatinine 0.8 mg/dL (0.7-1.2) 02/28/17 08:33 Estimated GFR > 60 ml/min 02/28/17 08:33 BUN/Creatinine Ratio 10.00 % 02/28/17 08:33 Glucose 80 mg/dL (65-100) 02/28/17 08:33 Calcium 8.7 mg/dL (8.4-10.2) 02/28/17 08:33 Troponin T < 0.010 ng/mL (0.00-0.029) 02/27/17 04:22
--- NOTE | 2017-02-28 15:31 | Progress Note ---
Assessment and Plan - Patient Problems (1) Pulmonary embolism Current Visit: Yes Status: Acute Qualifiers: Pulmonary embolism type: P Chronicity: C Acute cor pulmonale presence: A Plan to address problem: I would recommend that you refer further management of pulmonary embolism and associated anticoagulation therapy to the pulmonary service. (2) Abnormal ECG Current Visit: Yes Status: Acute Plan to address problem: T-wave changes on the EKG could be secondary to hypertension, but RV strain due to pulmonary embolism or cardiac ischemia will need to be in the differential diagnosis. Echocardiogram shows normal left ventricular systolic function, normal right heart dilatation all strain, benign echo findings.. Electively as outpatient, patient will be recommended for cardiac ischemia assessment with a thallium stress test. (3) Hypertension Current Visit: No Status: Chronic Qualifiers: Hypertension type: essential hypertension Qualified Code(s): I10 - Essential (primary) hypertension Plan to address problem: Hypertension is uncontrolled. We will add Procardia XL for blood pressure management. Subjective Date of service: 02/28/17 Interval history: Patient is stable, looks and feels better, no acute distress. No new cardiac complaints. Echocardiogram today revealed normal left ventricle systolic function, ejection fraction 55-60%. Objective Vital Signs Temp Pulse Pulse Resp Resp BP Pulse Ox 02/28/17 09:14 98.3 F 56 L 18 163/79 95 02/28/17 08:05 76 02/28/17 05:00 98.0 F 76 20 154/80 98 02/28/17 00:00 98.4 F 70 20 169/78 98 02/27/17 22:00 80 18 97 02/27/17 20:06 18 02/27/17 20:00 99.0 F 64 20 188/88 98 02/27/17 17:40 99.0 F 74 18 185/86 99 - Physical Examination General: Appears Well, No Apparent Distress HEENT: Positive: PERRL Neck: Positive: neck supple Cardiac: Positive: Reg Rate and Rhythm Lungs: Positive: Decreased Breath Sounds Neuro: Positive: Grossly Intact Abdomen: Positive: Soft Skin: Positive: Clear Extremities: Absent: edema - Labs and Meds CBC 02/28/17 Range/Units 08:33 WBC 5.5 (4.5-11.0) K/mm3 RBC 4.69 (3.65-5.03) M/mm3 Hgb 10.2 (10.1-14.3) gm/dl Hct 34.5 (30.3-42.9) % Plt Count 216 (140-440) K/mm3 Comprehensive Metabolic Panel 02/28/17 Range/Units 08:33 Sodium 138 (137-145) mmol/L Potassium 3.8 (3.6-5.0) mmol/L Chloride 98.7 (98-107) mmol/L Carbon Dioxide 27 (22-30) mmol/L BUN 8 (7-17) mg/dL Creatinine 0.8 (0.7-1.2) mg/dL Glucose 80 (65-100) mg/dL Calcium 8.7 (8.4-10.2) mg/dL - Imaging and Cardiology EKG: image reviewed
[2017-02-28] MEDS: HCTZ PO SCH (17:09)
[2017-02-28] MEDS: PROCARDIA XL PO SCH (17:09)
[2017-02-28] MEDS: TORADOL IV PRN (20:35)
[2017-02-28] MEDS: TYLENOL PO PRN (23:03)
--- NOTE | 2017-03-01 02:40 | Admit Criteria Form ---
Admission Criteria Documentation: PULMONARY EMBOLISM Clinical Indications for Admission to Inpatient Care (Place 'X' for any and all applicable criteria): Admission is indicated for 1 or more of the following(1)(2)(3)(4)(5)(6)(7) [ ]I. Hypoxemia [ ]II. Vital sign abnormality (8) indicated by ALL of the following: [ ]a) Vital sign findings not as expected for chronic patient condition or baseline (eg, intentionally low, blood pressure in heart failure) [ ]b) Vital sign abnormality as indicated by 1 or more of the following [ ]l) Tachycardia [ ]ll) Hypotension [ ]lll) Orthostatic vital sign changes [ ]III. History of cancer [ ]IV. History of chronic cardiopulmonary disease (eg. CHF, coronary artery disease, COPD, cor pulmonale) [ ]V. Cardiac arrhythmias of intermediate concern [ ]. Right ventricular dysfunction (eg, by echocardiogram) [ ]VII. Positive cardiac biomarker (eg, troponin T or I > 0.1 ng/mL (mcg/L), highly sensitive troponin I assay greater than 0.014 ng/mL (mcg/L), BNP or NT proBNP > assay threshold)(8 )(10)(11) [ ]VIII. Need for IV narcotics (eg, to treat dyspnea) 1 or more of following: [ ]a) Bleeding before anticoagulation [ ]b) Recent surgery (eg, within 3 months) that increases risk of catastrophic bleeding (eg, spinal surgery, intracranial surgery, cardiovascular surgery) [ ]c) Recent GI bleeding (eg, within 3 months) or known increased risk of GI bleed (eg,esophageal varices, current ulcer) [ ]d) Recent (eg, within 3 months) ischemic stroke [ ]e) History of intracranial bleeding (eg, hemorrhagic stroke) [ ]f) History of active bleeding when anticoagulated [ ]g) Active substance abuse [ ]h) Other risk factor thought to place patient at high risk such that ability to rapidly reverse reversal agent) [ ]X. Documented extensive thrombosis (eg, clot in vena cava or above iliofemoral bifurcation) [ ]Xl. Thrombolysis (eg, catheter-directed) or pharmacomechanical thrombectomy needed[A][B](8) [ ]XIl. Vena cava filter placement needed (eg, unable to anticoagulate)[C](8) [ ]Xlll. with delivery planned (eg, 37 or more weeks' gestation)(14 ) [ ]XlV. Limb-threatening thrombosis (eg, phlegmasia cerula dolens) [X]XV. Embolism while on anti-coagulation [ ]XVl. Contraindication to outpatient use of medication with rapid anticoagulation effect as indicated by ALL of the following: [ ] a) Contraindication to use of zhn-eimfsslqb-ofqmrm heparin[E][F ] indicated by 1 or more of the following(16): [ ] i) Documented current or history of heparin-induced thrombocytopenia(15) [ ] ii) Severe thrombocytopenia (eg, platelet count less than 50 ,000/mm3 (50 x109/L)) [ ] iii) Allergy to heparin, dof-qfgfckxwh-xldluv heparin, or product component [ ] iv) Renal failure (creatinine clearance less than 30 mL/min/ 1.73m2 (0.50 mL/sec/1.73m2) or on dialysis) [ ] v) Need for neuraxial anesthesia or spinal puncture anticipated [ ] vi) Inability to manage self-injection (eg. By patient, caregiver, or visiting nurse) [ ] b) Contraindication to use of fondaparinux indicated by 1 or more of the following: [ ] i) Documented current or history of heparin-induced thrombocytopenia (15) [ ] ii) Severe thrombocytopenia (eg, platelet count less than 50 ,000/mm3 (50 x109/L)) [ ] iii) Allergy to fondaparinux, related drugs, or product components [ ] iv) Renal failure (creatinine clearance less than 30 mL/min/ 1.73m2 (0.50 mL/sec/1.73m2) or on dialysis) [ ] v) [ ] vi) Liver disease with coagulopathy (eg, elevated INR due to liver disease) [ ] vii) Mechanical heart valve [ ] viii) Need for neuraxial anesthesia or spinal puncture anticipated [ ] xi) Inability to manage self-injection (eg, by patient, caregiver, or visiting nurse) [ ] c) Contraindication to use of an oral direct thrombin inhibitor (eg, dabigatran) or an oral coagulation factor Xa inhibitor (eg, rivaroxaban, apixaban)[E][F] indicated by 1 or more of the following(17)(18): [ ] i) Severe thrombocytopenia (eg, platelet count less than 50, 000/mm3 (50 x109/L)) [ ] ii) Allergy to medication or product components x109/L)) [ ] iii) Renal failure (creatinine clearance less than 30 mL/min /1.73m2 (0.50 mL/sec/1.73m2) or on dialysis) [ ] iv) [ ] v) Liver disease with coagulopathy (eg, elevated INR due to liver disease) [ ] vi) Mechanical heart valve [ ] vii) Need for neuraxial anesthesia or spinal puncture anticipated [ ]XVll. Inpatient admission required rather than observation care (Also use Pulmonary Embolism: Observation Care guideline as appropriate) because of ANY ONE of the following: [ ] a) Significant autoimmune (thrombocytopenia) or coagulopathic reaction occurs in response to anticoagulation [ ] b) Respiratory symptoms (eg, tachypnea, dyspnea) that are severe or persistent [ ] c) Other condition, treatment, or monitoring requiring inpatient admission The original [facility] content created by [employer] has been revised. The portions of the content which have been revised are identified through the use of italic text or in bold, and [facility] has neither reviewed nor approved the modified material. All other unmodified content is copyright [employer] [facility]. Please see references footnoted in the original [employer] [facility] edition 2017 Admission Criteria Met: Yes
[2017-03-01] MEDS: TYLENOL PO PRN (07:36)
--- NOTE | 2017-03-01 09:19 | Discharge Summary ---
Providers - Providers Date of Admission: 02/27/17 02:12 Attending physician: EFRAÍN ALEXIS MD Primary care physician: ARMATURE BANDER Hospitalization Reason for admission: chest pain Condition: Stable Hospital course: 51-year-old line was diagnosed with DVT and pulmonary emboli last month, and throat gums emergency room with complaints of chest pain. Pain is pleuritic, intermittent, intensity 8/10, feels like her last pulmonary emboli, worse with coughing and shortness of breath. Patient states compliant with the relative, not sedentary at home, no recent travel. Imaging studies showed improvement in previously noted pulmonary embolism. Patient was treated with pain medication and also with blood pressure control with remarkable improvement. She reported a headache for which a head CT was done that was negative. Her symptoms did improve with the control of her blood pressure. No focal shortness of breath was experienced she is to continue her anticoagulation levels discussed that she needs this for at least 3 months. She is to follow up with primary care physician we also did recommend stress test to be done outpatient the patient verbalized understanding and I will follow with cardiology she understands no exertional activity on this is done Atypical Chest pain with Pleurtic component also reproducible Chronic pulmonary emboli DVT HTN Abnormal EKG Morbidly obese Disposition: [id number]/TX-06 HOME UNDER HOME [facility] Time spent for discharge: 35 mins Core Measure Documentation - Palliative Care Palliative Care/ Comfort Measures: Not Applicable - Core Measures Any of the following diagnoses?: none - VTE Discharge Requirements Deep Vein Thrombosis/Pulmonary Embolism Present on Admission: No Exam - Physical Exam Narrative exam: VITAL SIGNS: Reviewed. GENERAL: The patient appeared well nourished and normally developed. Morbidly obese. Vital signs as documented. HEAD: No signs of head trauma. EYES: Pupils are equal. Extraocular motions intact. EARS: Hearing grossly intact. MOUTH: Oropharynx is normal. NECK: No adenopathy, no JVD. CHEST: Chest with clear breath sounds bilaterally. No wheezes, rales, or rhonchi. CARDIAC: Regular rate and rhythm. S1 and S2, without murmurs, gallops, or rubs. VASCULAR: No Edema. Peripheral pulses normal and equal in all extremities. ABDOMEN: Soft, without detectable tenderness. No sign of distention. No rebound or guarding, and no masses palpated. Bowel Sounds normal. MUSCULOSKELETAL: Good range of motion of all major joints. Extremities without clubbing, cyanosis or edema. NEUROLOGIC EXAM: Alert and oriented x 3. No focal sensory or strength deficits. Speech normal. Follows commands. PSYCHIATRIC: Mood normal. SKIN: No rash or lesions. - Constitutional Vitals: Temp Pulse Resp BP Pulse Ox 98.5 F 74 20 143/82 98 03/01/17 04:00 03/01/17 07:42 03/01/17 07:36 03/01/17 04:00 03/01/17 07:38 Plan Activity: advance as tolerated, fall precautions Diet: low fat, low salt Special Instructions: record daily weights, record daily BP diary Additional Instructions: patient should follow with Cardiology for outpatient stress test in 3-5 days. No exertional activity until this is done. Follow up with: MARS SANDHU MD [Staff Physician] - 7 Days PRIMARY CARE, [Primary Care Provider] - 3-5 Days NICOLE FRANCIS MD [Staff Physician] - 3 Days Prescriptions: Losartan [Cozaar] 100 mg PO QDAY #30 tablet NIFEdipine XL [Procardia Xl] 60 mg PO QDAY #30 tablet Rivaroxaban [Xarelto] 20 mg PO DAILY #30 tablet traMADol [Ultram] 50 mg PO Q6HR PRN #14 tablet PRN Reason: Pain
[2017-03-01] MEDS: COZAAR PO SCH (10:10)
[2017-03-01] MEDS: PROCARDIA XL PO SCH (10:11)
[2017-03-01] MEDS: HCTZ PO SCH (10:11)
[2017-03-01] MEDS ORDERED: ULTRAM PO PRN (10:19)
--- NOTE | 2017-03-01 12:34 | Cat Scan Report ---
CT HEAD WITHOUT CONTRAST INDICATION: Severe headaches. COMPARISON: None similar. FINDINGS: Noncontrast head CT demonstrates normal ventricles and sulci without acute or recent infarct, hemorrhage, mass effect or midline shift. No abnormal extra-axial fluid collections. Posterior fossa structures and basilar cisterns appear within normal limits. Symmetric eye globes. Clear paranasal sinuses and mastoid air cells. Intact calvarium. Normal overlying scalp soft tissues. Atherosclerotic ICA calcifications. CONCLUSION: No acute intracranial CT abnormality, as described. Thank you for the opportunity to participate in this patient's care.
--- NOTE | 2017-03-01 12:59 | Progress Note ---
Assessment and Plan - Patient Problems (1) Pulmonary embolism Current Visit: Yes Status: Acute Qualifiers: Pulmonary embolism type: P Chronicity: C Acute cor pulmonale presence: A Plan to address problem: I would recommend that you refer further management of pulmonary embolism and associated anticoagulation therapy to the pulmonary service. (2) Abnormal ECG Current Visit: Yes Status: Acute Plan to address problem: T-wave changes on the EKG could be secondary to hypertension, but RV strain due to pulmonary embolism or cardiac ischemia will need to be in the differential diagnosis. Echocardiogram shows normal left ventricular systolic function, normal right heart chambers, no pulmonary hypertension. Electively as outpatient, patient will be recommended for cardiac ischemia assessment with a thallium stress test. (3) Hypertension Current Visit: No Status: Chronic Qualifiers: Hypertension type: essential hypertension Qualified Code(s): I10 - Essential (primary) hypertension Subjective Date of service: 03/01/17 Interval history: Recommended that the patient get a predischarge thallium stress test, but she declines and wants to go home today. She states that she'll report to the office as an outpatient for thallium stress testing in the next few weeks. Objective Vital Signs Temp Pulse Pulse Resp Resp BP Pulse Ox 03/01/17 11:12 20 03/01/17 08:00 97.9 F 72 20 137/94 99 03/01/17 07:42 74 03/01/17 07:38 98 03/01/17 07:36 20 03/01/17 04:00 98.5 F 76 18 143/82 96 03/01/17 00:03 18 03/01/17 00:00 98.3 F 73 18 127/60 96 02/28/17 23:03 18 02/28/17 22:00 85 18 02/28/17 21:18 18 02/28/17 21:05 18 02/28/17 20:35 18 02/28/17 20:00 99.0 F 88 18 172/83 94 02/28/17 18:41 98.3 F 67 18 171/87 95 02/28/17 18:29 98.3 F 67 18 171/87 95 - Physical Examination General: Appears Well, No Apparent Distress HEENT: Positive: PERRL Neck: Positive: neck supple Cardiac: Positive: Reg Rate and Rhythm Lungs: Positive: Decreased Breath Sounds Neuro: Positive: Grossly Intact Abdomen: Positive: Soft Skin: Positive: Clear Extremities: Absent: edema - Imaging and Cardiology EKG: image reviewed
[2017-03-01 13:32] VITALS: BP 153/92
== END 2017-03-01 17:05 | disposition home health service (06) | DRG 313 ==
LOC: ED 21:45 → 4A 02-27 02:12
PROVIDERS: ADMIT Internal Medicine; ATTEND Internal Medicine
DX: R07.89 Other chest pain (principal); I11.0 Hypertensive heart disease with heart failure; I50.9 Heart failure, unspecified; E66.01 Morbid (severe) obesity due to excess calories; Z68.42 Body mass index [BMI] 45.0-49.9, adult; Z86.711 Personal history of pulmonary embolism; Z90.49 Acquired absence of other specified parts of digestive tract; Z82.49 Family history of ischemic heart disease and other diseases of the circulatory system; Z86.718 Personal history of other venous thrombosis and embolism
CPT/HCPCS: 36415; 70450; 71275; 80048; 84484; 85007; 85025; 85610; 85730; 93005; 93010; 93306; 96372; J1650; J1885; J2270; J2405; Q9967

== ENCOUNTER 2017-09-14 20:11 | Inpatient (IN) | payer MEDICAID ==
[2017-09-14] MEDS ORDERED: ASPIRIN PO ONE (20:51)
[2017-09-14 21:08] LABS: Basophils # (Auto) 0.1 K/mm3 (0.0-0.1); Basophils % (Auto) 0.7 % (0.0-1.8); Eosinophils # (Auto) 0.3 K/mm3 (0.0-0.4); Eosinophils % (Auto) 3.4 % (0.0-4.3); Hematocrit 35.4 % (30.3-42.9); Hemoglobin 11.2 gm/dl (10.1-14.3); Lymphocytes # (Auto) 2.3 K/mm3 (1.2-5.4); Lymphocytes % (Auto) 23.2 % (13.4-35.0); Mean Corpuscular HGB Conc 32 % (30-34); Mean Corpuscular Hemoglobin 24 pg (28-32); Mean Corpuscular Volume 75 fl (79-97); Monocytes % (Auto) 10.4 % (0.0-7.3); Platelet Count 272 K/mm3 (140-440); Red Blood Count 4.73 M/mm3 (3.65-5.03); Red Cell Distribution Width 17.8 % (13.2-15.2)
[2017-09-14 21:23] LABS: BUN/Creatinine Ratio 12; Blood Urea Nitrogen 12 mg/dL (7-17); Calcium 9.2 mg/dL (8.4-10.2); Hemolysis Index 16
[2017-09-14] MEDS ORDERED: NORCO 5/325 PO ONE (22:47)
[2017-09-14] MEDS ORDERED: VALIUM PO ONE (22:47)
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
--- NOTE | 2017-09-15 00:02 | Cat Scan Report ---
FINAL REPORT PROCEDURE: CT HEAD/BRAIN WO CON TECHNIQUE: Computerized tomography of the head was performed without contrast material. HISTORY: Headache. COMPARISON: CT scan of the brain dated 03/01/2017. FINDINGS: Skull and scalp: Normal. Paranasal sinuses: Normal. Ventricles and subarachnoid spaces: Normal. Cerebrum: No evidence of hemorrhage, acute infarction or mass . Cerebellum and brainstem: No evidence of hemorrhage, acute infarction or mass. Vasculature: Normal. Comments: On statistical clerk advertising film there is a cavity about a posterior maxillary molar. IMPRESSION: No CT evidence of acute intracranial pathology. Consider MRI of the brain for further characterization if there is continued clinical concern and patient has no contraindication to MRI. Cavity of a posterior maxillary molar, consider dental consultation.
--- NOTE | 2017-09-15 00:26 | Cat Scan Report ---
FINAL REPORT PROCEDURE: CT ANGIO CHEST TECHNIQUE: Computerized axial tomographic angiography of the chest and pulmonary arteries was performed after the IV injection of iodinated nonionic contrast. The image data was postprocessed using maximum intensity projection (MIP) and 2-dimensional multiplanar reformatted (MPR) techniques. The examination is specifically tailored to the evaluation of the pulmonary arteries per clinical request. HISTORY: Chest pain. History of pulmonary embolism. COMPARISON: CTA of the chest dated 02/27/2017. FINDINGS: Heart and pericardium: Normal. Thoracic aorta: Normal. Pulmonary vasculature: Stable central linear filling defect in right lower lobe pulmonary artery branch similar to prior exam (images 61-63 series 3). Lymph nodes: No enlarged thoracic lymph nodes. Lungs: Normal. Pleural space: No effusion, thickening, or pneumothorax. Musculoskeletal structures: Mild osteopenia. Multilevel disc space narrowing and osteophytes. Upper abdominal structures: Cholecystectomy. Small pre cardiac and periaortic lymph nodes. IMPRESSION: No new CT evidence of pulmonary embolism. Stable linear central area of filling defect in right lower lobe pulmonary artery branch, consider chronic pulmonary embolism/web, similar to prior exam. Pulmonary artery of normal caliber. RV/lb ratio normal. No reflux into the IVC.
[2017-09-15 00:27] LABS: INR 1.02 (0.87-1.13); Partial Thromboplastin Time 29.7 Sec. (24.2-36.6)
[2017-09-15] MEDS ORDERED: MORPHINE IV PRN (03:05)
[2017-09-15] MEDS ORDERED: TYLENOL PO PRN (03:05)
[2017-09-15] MEDS ORDERED: ZOFRAN IV PRN (03:05)
[2017-09-15] MEDS ORDERED: SODIUM CHLORIDE FLUSH SYRINGE 10 ML IV PRN (03:05)
--- NOTE | 2017-09-15 03:11 | History and Physical Report ---
History of Present Illness Date of examination: 09/15/17 History of present illness: 51-year-old line was diagnosed with DVT and pulmonary emboli last month, comes to emergency room with complaints of chest pain. Pain is pleuritic, intermittent, intensity 5/10, feels like her last pulmonary emboli, worse with deep breath. She was seen by cardiology on last admission, refused stress test. Denies nausea, vomiting, daiphoresis, palpitation, admits to shortness of breath Review Of Systems: Constitutional: no weight loss Ears, eyes, nose, mouth and throat: no nasal congestion, no nasal discharge, no sinus pressure, blurry vision, diplopia Neck: No neck pain or rigidity. Cardiovascular: orthopnea, palpitations Respiratory: No shortness of breath, cough Gastrointestinal: abdominal pain, hematochezia Genitourinary : no dysuria, frequency , hematuria Musculoskeletal: no muscle ache Integumentary: no rash, no pruritis Neurological: no parathesias, focal weakness Endocrine: no cold or heat intolerance, no polyuria or polydipsia Hematologic/Lymphatic: no easy bruising, no easy bleeding, no gland swelling Allergic/Immunologic: no urticaria, no angioedema. PAST MEDICAL HISTORY:DVT and pulmonary emboli PAST SURGICAL HISTORY: Cholecystectomy FAILY HISTORY: Hypertension SOCIAL HISTORY: Denies alcohol , tobacco, drugs we will follow Medications and Allergies Allergies Allergy/AdvReac Type Severity Reaction Status Date / Time shellfish derived Allergy Unknown Verified 09/14/17 20:51 Home Medications Medication Instructions Recorded Confirmed Last Taken Type Carvedilol [Coreg] 12.5 mg PO BID #60 tablet 01/27/17 09/15/17 02/26/17 Rx Ferrous Sulfate [Feosol 325 MG tab] 325 mg PO TID #90 tablet 01/27/17 09/15/17 02/26/17 Rx Folic Acid [Folvite] 1 mg PO QDAY #30 tablet 01/27/17 09/15/17 02/26/17 Rx Losartan [Cozaar] 100 mg PO QDAY #30 tablet 01/27/17 09/15/17 02/26/17 Rx Apixaban [Eliquis] 5 mg PO BID 09/15/17 09/15/17 Unknown History Ranitidine HCl [Heartburn Relief] 75 mg PO BID 09/15/17 09/15/17 Unknown History amLODIPine [Norvasc] 5 mg PO DAILY 09/15/17 09/15/17 Unknown History Active Meds: Active Medications Acetaminophen (Tylenol) 650 mg PO Q4H PRN PRN Reason: Pain MILD(1-3)/Fever >100.5/TALAMANTES Morphine Sulfate (Morphine) 2 mg IV Q4H PRN PRN Reason: Pain, Moderate (4-6) Ondansetron HCl (Zofran) 4 mg IV Q8H PRN PRN Reason: Nausea And Vomiting Sodium Chloride (Sodium Chloride Flush Syringe 10 Ml) 10 ml IV BID JEANNETTE Sodium Chloride (Sodium Chloride Flush Syringe 10 Ml) 10 ml IV PRN PRN PRN Reason: LINE FLUSH Exam - Constitutional Vitals: Temp Pulse Resp BP Pulse Ox 98.1 F 70 23 141/84 91 09/14/17 20:16 09/15/17 00:16 09/15/17 00:16 09/15/17 00:16 09/15/17 00:16 Results - Labs CBC & Chem 7: 09/14/17 20:55 09/14/17 20:55 Labs: Abnormal lab results 09/14/17 Range/Units 20:55 MCV 75 L (79-97) fl MCH 24 L (28-32) pg RDW 17.8 H (13.2-15.2) % [place] % (Auto) 10.4 H (0.0-7.3) % [place] # 1.0 H (0.0-0.8) K/mm3 Assessment and Plan Assessment Chest pain chronic pulmonary emboli History of DVT Plan 1Check car aboutdiac enzymes, stress test, consult cardiology
[2017-09-15 08:02] LABS: Creatine Kinase MB 1.1 ng/mL (0.0-4.0)
[2017-09-15] MEDS ORDERED: LEXISCAN IV ONE ×3 (10:12→13:00)
[2017-09-15] MEDS ORDERED: PNEUMOVAX 23 IM ONE (12:00)
[2017-09-15] MEDS: COREG PO SCH ×2 (15:44→23:07)
[2017-09-15] MEDS: FOLVITE PO SCH (15:45)
[2017-09-15] MEDS: NORVASC PO SCH (15:45)
[2017-09-15] MEDS: COZAAR PO SCH (15:45)
[2017-09-15] MEDS: ELIQUIS PO SCH ×2 (15:45→23:07)
[2017-09-15] MEDS: PEPCID PO SCH ×2 (15:46→23:07)
[2017-09-15] MEDS: FEOSOL PO SCH ×3 (15:47→23:09)
[2017-09-15] MEDS: SODIUM CHLORIDE FLUSH SYRINGE 10 ML IV SCH ×2 (16:00→23:10)
--- NOTE | 2017-09-15 17:13 | Progress Note ---
Assessment and Plan Assessment and plan: --Accelerated hypertension; blood pressures have poorly controlled Continue current antihypertensives, adjust dosage as, when necessary hydralazine --Atypical chest pain; probably costochondritis Stress test negative for reversible ischemia Continue current medications --Costochondritis; supportive care, pain management --Gastroesophageal reflux disease; Protonix, advised weight reduction --Chronic pulmonary emboli/history of DVT On chronic anticoagulation Eliquis --Morbid obesity; BMI 51; counseling done, advised diet modification Exercise as tolerated and weight reduction when medically stable Patient verbalized understanding --DVT prophylaxis; patient is already on Eliquis Closely monitor blood pressures, symptomatically manage Possible discharge home tomorrow if stable plan of care reviewed with the patient and her nurse Verbalized understanding History Interval history: Morbidly obese 52-year-old female patient well known to us services was admitted through emergency room with chest pain Patient underwent stress test which was negative for reversible ischemia Patient continues to have intermittent chest discomfort and abdominal pain Denies nausea vomiting The patient is alert awake oriented 3 in no acute distress Vital signs reviewed Hospitalist Physical - Constitutional Vitals: Temp Pulse Resp BP Pulse Ox 98.5 F 79 18 135/94 91 09/15/17 16:39 09/15/17 16:39 09/15/17 16:39 09/15/17 16:39 09/15/17 16:39 General appearance: Present: no acute distress, well-nourished - EENT Eyes: Present: PERRL, EOM intact - Neck Neck: Present: supple, normal ROM - Respiratory Respiratory: bilateral: diminished, negative: rales, rhonchi, wheezing - Cardiovascular Rhythm: regular Heart Sounds: Present: S1 & S2 - Extremities Extremities: no ischemia, No edema - Abdominal General gastrointestinal: soft, non-tender, non-distended, normal bowel sounds - Integumentary Integumentary: Present: clear, warm - Psychiatric Psychiatric: appropriate mood/affect, cooperative - Neurologic Neurologic: CNII-XII intact, moves all extremities Results - Labs CBC & Chem 7: 09/14/17 20:55 09/14/17 20:55 Labs: Laboratory Last Values WBC 9.8 K/mm3 (4.5-11.0) 09/14/17 20:55 RBC 4.73 M/mm3 (3.65-5.03) 09/14/17 20:55 Hgb 11.2 gm/dl (10.1-14.3) 09/14/17 20:55 Hct 35.4 % (30.3-42.9) 09/14/17 20:55 MCV 75 fl (79-97) L 09/14/17 20:55 MCH 24 pg (28-32) L 09/14/17 20:55 MCHC 32 % (30-34) 09/14/17 20:55 RDW 17.8 % (13.2-15.2) H 09/14/17 20:55 Plt Count 272 K/mm3 (140-440) 09/14/17 20:55 Lymph % (Auto) 23.2 % (13.4-35.0) 09/14/17 20:55 [place] % (Auto) 10.4 % (0.0-7.3) H 09/14/17 20:55 Eos % (Auto) 3.4 % (0.0-4.3) 09/14/17 20:55 Baso % (Auto) 0.7 % (0.0-1.8) 09/14/17 20:55 Lymph # 2.3 K/mm3 (1.2-5.4) 09/14/17 20:55 [place] # 1.0 K/mm3 (0.0-0.8) H 09/14/17 20:55 Eos # 0.3 K/mm3 (0.0-0.4) 09/14/17 20:55 Baso # 0.1 K/mm3 (0.0-0.1) 09/14/17 20:55 Seg Neutrophils % 62.3 % (40.0-70.0) 09/14/17 20:55 Seg Neutrophils # 6.1 K/mm3 (1.8-7.7) 09/14/17 20:55 PT 13.9 Sec. (12.2-14.9) 09/15/17 00:00 INR 1.02 (0.87-1.13) 09/15/17 00:00 APTT 29.7 Sec. (24.2-36.6) 09/15/17 00:00 Sodium 140 mmol/L (137-145) 09/14/17 20:55 Potassium 4.9 mmol/L (3.6-5.0) 09/14/17 20:55 Chloride 100.3 mmol/L (98-107) 09/14/17 20:55 Carbon Dioxide 29 mmol/L (22-30) 09/14/17 20:55 Anion Gap 16 mmol/L 09/14/17 20:55 BUN 12 mg/dL (7-17) 09/14/17 20:55 Creatinine 1.0 mg/dL (0.7-1.2) 09/14/17 20:55 Estimated GFR > 60 ml/min 09/14/17 20:55 BUN/Creatinine Ratio 12 % 09/14/17 20:55 Glucose 85 mg/dL (65-100) 09/14/17 20:55 Calcium 9.2 mg/dL (8.4-10.2) 09/14/17 20:55 Total Creatine Kinase 71 units/L (30-135) 09/15/17 06:55 CK-MB (CK-2) 1.1 ng/mL (0.0-4.0) 09/15/17 06:55 CK-MB (CK-2) Rel Index 1.5 (0-4) 09/15/17 06:55 Troponin T < 0.010 ng/mL (0.00-0.029) 09/15/17 06:55
--- NOTE | 2017-09-15 17:56 | Event Note ---
Date: 09/15/17 Atypical chest pain MPI - normal LVEF, no ischemia Echo 02/2017 - normal LVEF Chronic pulmonary embolism on CTA chest Patient on eliquis 5 mg po bid No further cardiac work-up is needed as inpatient
--- NOTE | 2017-09-15 21:40 | Treadmill Report ---
ORDERING PHYSICIAN: Mary Price MD INDICATION FOR THE PROCEDURE: Chest pain. FINDINGS: There is no scintigraphic evidence of myocardial ischemia. The left ventricle is normal in size and systolic function. Normal wall motion and wall thickening is noted on gated imaging. Left ventricular ejection fraction is measured at 61%. CONCLUSION: 1. Normal perfusion scan. 2. Low risk cardiovascular study with a 1-year cardiovascular event rate of less than 1%. JOB# [id number] ELIANE/ALEJANDRO
[2017-09-16 06:52] LABS: Basophils % (Auto) 0.5 % (0.0-1.8); Eosinophils # (Auto) 0.2 K/mm3 (0.0-0.4); Eosinophils % (Auto) 2.9 % (0.0-4.3); Hematocrit 33.1 % (30.3-42.9); Hemoglobin 10.3 gm/dl (10.1-14.3); Lymphocytes # (Auto) 1.6 K/mm3 (1.2-5.4); Lymphocytes % (Auto) 20.6 % (13.4-35.0); Mean Corpuscular HGB Conc 31 % (30-34); Mean Corpuscular Volume 75 fl (79-97); Monocytes # (Auto) 0.7 K/mm3 (0.0-0.8); Monocytes % (Auto) 8.8 % (0.0-7.3); Platelet Count 270 K/mm3 (140-440); Red Blood Count 4.42 M/mm3 (3.65-5.03); Red Cell Distribution Width 17.5 % (13.2-15.2)
[2017-09-16 06:57] LABS: Mean Corpuscular Hemoglobin 23 pg (28-32)
[2017-09-16 07:08] LABS: BUN/Creatinine Ratio 13; Blood Urea Nitrogen 12 mg/dL (7-17); Calcium 8.9 mg/dL (8.4-10.2); Hemolysis Index 6
[2017-09-16] MEDS: ELIQUIS PO SCH (10:36)
[2017-09-16] MEDS: COZAAR PO SCH (10:37)
[2017-09-16] MEDS: FEOSOL PO SCH (10:37)
[2017-09-16] MEDS: NORVASC PO SCH (10:37)
[2017-09-16] MEDS: FOLVITE PO SCH (10:37)
[2017-09-16] MEDS: PEPCID PO SCH (10:37)
[2017-09-16] MEDS: COREG PO SCH (10:37)
[2017-09-16 15:02] VITALS: BP 124/70
--- NOTE | 2017-09-16 15:51 | Discharge Summary ---
Providers - Providers Date of Admission: 09/15/17 03:05 Date of discharge: 09/16/17 Attending physician: LAURA VILLAREAL 09/15/17 03:05 Consult to Physician [CONS] Routine Consulting Provider: NICOLE FRANCIS Reason For Exam: cp Place consult to:: Dr. Francis Notified:: nurse Phone number called:: personal cell phone Was contact made?: Yes If yes, spoke with:: Lee Time called:: 09:39 Primary care physician: BRYANT NATARAJAN Hospitalization Reason for admission: chest pain Condition: Stable Pertinent studies: CTA chest; no acute PE, possible chronic PE CT head; no acute intracranial abnormality. Cavity of posterior maxillary molar Advised to see dentist Stress test; normal study, left ventricular ejection fraction 61% Hospital course: 52-year-old female patient was admitted with atypical chest pain Admitting symptomatically managed, evaluated by cardiology Had stress test which was negative for reversible ischemia and normal left ventricular function Patient was symptomatically managed Chest pain could be secondary to costochondritis, symptomatically managed with pain medications Patient counseled diet modification and exercise as tolerated and weight reduction when medically stable Patient also counseled to be compliant with medications and diet Workup is consistent with chronic PE, patient is already on Eliquis Today she is comfortable in no new complaints Vital signs are stable Physical examination unremarkable Cleared by cardiology Follow-up with primary care physician and cardiology per schedule Patient is stable at the time of discharge Discharge diagnosis; --Accelerated hypertension; blood pressures improved on medications --Atypical chest pain; probably costochondritis Stress test negative for reversible ischemia --Costochondritis; supportive care, pain management --Gastroesophageal reflux disease; Protonix, advised weight reduction --Chronic pulmonary emboli/history of DVT, Eliquis --Morbid obesity; BMI 51; counseling done, advised diet modification Patient is hemodynamically stable for discharge Disposition: [place]-01 TO HOME OR SELFCARE Time spent for discharge: 32 min Core Measure Documentation - Palliative Care Palliative Care/ Comfort Measures: Not Applicable - Core Measures Any of the following diagnoses?: none Exam - Constitutional Vitals: Temp Pulse Resp BP Pulse Ox 98.3 F 73 16 124/70 95 09/16/17 13:11 09/16/17 13:11 09/16/17 13:11 09/16/17 13:11 09/16/17 13:11 General appearance: Present: no acute distress, well-nourished, obese - EENT Eyes: Present: PERRL, EOM intact - Neck Neck: Present: supple, normal ROM - Respiratory Respiratory effort: normal Respiratory: negative: rales, rhonchi, wheezing - Cardiovascular Rhythm: regular Heart Sounds: Present: S1 & S2 - Extremities Extremities: no ischemia, No edema Peripheral Pulses: within normal limits - Abdominal General gastrointestinal: Present: soft, non-tender, non-distended, normal bowel sounds - Integumentary Integumentary: Present: clear, warm - Musculoskeletal Musculoskeletal: strength equal bilaterally - Psychiatric Psychiatric: appropriate mood/affect, cooperative - Neurologic Neurologic: CNII-XII intact, moves all extremities Plan Activity: advance as tolerated Diet: low salt, other (cardiac diet) Additional Instructions: Go to [facility] 3-4 days for further evaluation of anxiety and stress. Advised diet modification and exercise as tolerated and weight reduction when medically stable Follow up with: BRYANT NATARAJAN MD [Primary Care Provider] - 3-5 Days RUTH ALVAREZ MD [Staff Physician] - 7 Days
== END 2017-09-16 17:18 | disposition home or self-care (01) | DRG 206 ==
LOC: ED 20:11 → 4A 09-15 03:05
PROVIDERS: ADMIT Internal Medicine; ATTEND Internal Medicine
PROC: 3E0234Z Introduction of Serum, Toxoid and Vaccine into Muscle, Percutaneous Approach (ICD-10-PCS; principal; 2017-09-15)
DX: M94.0 Chondrocostal junction syndrome [Tietze] (principal); K21.9 Gastro-esophageal reflux disease without esophagitis; E66.01 Morbid (severe) obesity due to excess calories; Z68.43 Body mass index [BMI] 50.0-59.9, adult; F41.9 Anxiety disorder, unspecified; I11.0 Hypertensive heart disease with heart failure; I50.9 Heart failure, unspecified; I27.82 Chronic pulmonary embolism; Z86.718 Personal history of other venous thrombosis and embolism; Z79.899 Other long term (current) drug therapy; Z91.013 Allergy to seafood; Z90.49 Acquired absence of other specified parts of digestive tract; Z82.49 Family history of ischemic heart disease and other diseases of the circulatory system; Z79.01 Long term (current) use of anticoagulants; Z23 Encounter for immunization
CPT/HCPCS: 36415; 70450; 71275; 78452; 80048; 82550; 82553; 84484; 85025; 85610; 85730; 90732; 93005; 93010; 93017; A9502; J2785; Q9967

== ENCOUNTER 2017-10-15 20:38 | Emergency (ER) | payer MEDICAID ==
[2017-10-15 21:19] LABS: Basophils % (Auto) 0.8 % (0.0-1.8); Eosinophils # (Auto) 0.2 K/mm3 (0.0-0.4); Eosinophils % (Auto) 3.1 % (0.0-4.3); Hematocrit 34.2 % (30.3-42.9); Hemoglobin 11.2 gm/dl (10.1-14.3); Lymphocytes # (Auto) 1.5 K/mm3 (1.2-5.4); Lymphocytes % (Auto) 29.4 % (13.4-35.0); Mean Corpuscular HGB Conc 33 % (30-34); Mean Corpuscular Volume 76 fl (79-97); Monocytes # (Auto) 0.8 K/mm3 (0.0-0.8); Monocytes % (Auto) 15.4 % (0.0-7.3); Platelet Count 176 K/mm3 (140-440); Red Cell Distribution Width 17.7 % (13.2-15.2)
[2017-10-15 21:20] LABS: Mean Corpuscular Hemoglobin 25 pg (28-32)
[2017-10-15 21:30] LABS: INR 0.96 (0.87-1.13)
[2017-10-15 21:31] LABS: Partial Thromboplastin Time 31.2 Sec. (24.2-36.6)
[2017-10-15 21:37] LABS: Alanine Aminotransferase 18 units/L (7-56); Albumin 3.5 g/dL (3.9-5); BUN/Creatinine Ratio 12; Blood Urea Nitrogen 13 mg/dL (7-17); Calcium 8.4 mg/dL (8.4-10.2); Hemolysis Index 6
--- NOTE | 2017-10-15 22:57 | XRay Report ---
FINAL REPORT EXAM: XR CHEST ROUTINE 2V HISTORY: MICKIE/SOB TECHNIQUE: Frontal and lateral chest x-ray. PRIORS: None. FINDINGS: Tortuous thoracic aorta. Cardiac silhouette prominent, which may be due in part to AP technique. Lungs are normally expanded, without significant vascular congestion. No focal consolidation, pleural effusion or apparent pneumothorax. Degenerative change in the thoracic spine. IMPRESSION: 1. No acute findings.
[2017-10-15] MEDS ORDERED: DUONEB *Not for PRN Use IH ONE (23:22)
--- NOTE | 2017-10-15 23:46 | Emergency Department Report ---
ED Shortness of Breath HPI - General Chief Complaint: Dyspnea/Respdistress Stated Complaint: SHORTNESS OF BREATH Time Seen by Provider: 10/15/17 22:50 Source: patient Mode of arrival: Ambulatory Limitations: No Limitations - History of Present Illness Initial Comments: pt. is here complaining of 4 day hx of cough non rpod. and sob and chest pain substernal when she coughs ,non radiating with no other aggrav. or relieving factor. she is also complaining of sore throat,nasal congestion.no fever MD Complaint: shortness of breath, cough, chest pain -: Gradual Radiation: other (none) Severity: moderate Quality: aching Consistency: intermittent Improves With: nothing Worsens With: coughing Associated Symptoms: chest pain Treatments Prior to Arrival: none - Related Data Home Medications Medication Instructions Recorded Confirmed Last Taken Apixaban [Eliquis] 5 mg PO BID 09/15/17 10/15/17 Unknown Ranitidine HCl [Heartburn Relief] 75 mg PO BID 09/15/17 10/15/17 Unknown amLODIPine [Norvasc] 10 mg PO DAILY 09/15/17 10/15/17 Unknown Citalopram [celeXA] 40 mg PO QDAY 10/15/17 10/15/17 Unknown Cyanocobalamin [Vitamin B-12] 1,000 mcg IM Q4W 10/15/17 10/15/17 10/10/17 Ferrous Sulfate [Feosol 325 MG tab] 325 mg PO BID 10/15/17 10/15/17 Unknown Gabapentin [Neurontin] 300 mg PO QHS PRN 10/15/17 10/15/17 Unknown Previous Rx's Medication Instructions Recorded Last Taken Type Carvedilol [Coreg] 12.5 mg PO BID #60 tablet 01/27/17 02/26/17 Rx Folic Acid [Folvite] 1 mg PO QDAY #30 tablet 01/27/17 02/26/17 Rx Losartan [Cozaar] 100 mg PO QDAY #30 tablet 01/27/17 02/26/17 Rx Albuterol Sulfate [Ventolin HFA] 2 puff IH Q4H PRN #1 hfa.aer.ad 10/16/17 Unknown Rx Azithromycin 250 mg PO DAILY #4 tablet 10/16/17 Unknown Rx Allergies Allergy/AdvReac Type Severity Reaction Status Date / Time shellfish derived Allergy Unknown Verified 09/14/17 20:51 ED Review of Systems ROS: Stated complaint: SHORTNESS OF BREATH Other details as noted in HPI Comment: All other systems reviewed and negative ED Past Medical Hx - Past Medical History Previous Medical History?: Yes Hx Hypertension: Yes Hx Congestive Heart Failure: Yes Hx Diabetes: No Hx Pulmonary Embolism: Yes Hx Asthma: No Hx COPD: No Additional medical history: ANEMIA, dvt 01/2017 - Surgical History Past Surgical History?: Yes Hx Cholecystectomy: Yes - Social History Smoking Status: Never Smoker Substance Use Type: None - Medications Home Medications: Home Medications Medication Instructions Recorded Confirmed Last Taken Type Carvedilol [Coreg] 12.5 mg PO BID #60 tablet 01/27/17 10/15/17 02/26/17 Rx Folic Acid [Folvite] 1 mg PO QDAY #30 tablet 01/27/17 10/15/17 02/26/17 Rx Losartan [Cozaar] 100 mg PO QDAY #30 tablet 01/27/17 10/15/17 02/26/17 Rx Apixaban [Eliquis] 5 mg PO BID 09/15/17 10/15/17 Unknown History Ranitidine HCl [Heartburn Relief] 75 mg PO BID 09/15/17 10/15/17 Unknown History amLODIPine [Norvasc] 10 mg PO DAILY 09/15/17 10/15/17 Unknown History Citalopram [celeXA] 40 mg PO QDAY 10/15/17 10/15/17 Unknown History Cyanocobalamin [Vitamin B-12] 1,000 mcg IM Q4W 10/15/17 10/15/17 10/10/17 History Ferrous Sulfate [Feosol 325 MG tab] 325 mg PO BID 10/15/17 10/15/17 Unknown History Gabapentin [Neurontin] 300 mg PO QHS PRN 10/15/17 10/15/17 Unknown History Albuterol Sulfate [Ventolin HFA] 2 puff IH Q4H PRN #1 hfa.aer.ad 10/16/17 Unknown Rx Azithromycin 250 mg PO DAILY #4 tablet 10/16/17 Unknown Rx ED Physical Exam - General Limitations: No Limitations General appearance: alert, in no apparent distress - Head Head exam: Present: atraumatic, normocephalic - Eye Eye exam: Present: normal appearance - ENT ENT exam: Present: mucous membranes moist, other (slightly erythematous pharynx. positive nasal congestion) - Neck Neck exam: Present: normal inspection - Respiratory Respiratory exam: Present: normal lung sounds bilaterally. Absent: respiratory distress - Cardiovascular Cardiovascular Exam: Present: regular rate, normal rhythm. Absent: systolic murmur, diastolic murmur, rubs, gallop - GI/Abdominal GI/Abdominal exam: Present: soft, tenderness (suprapubic ttp), normal bowel sounds - Rectal Rectal exam: Present: deferred - Extremities Exam Extremities exam: Present: normal inspection. Absent: full ROM - Back Exam Back exam: Present: normal inspection - Neurological Exam Neurological exam: Present: alert, oriented X3 - Psychiatric Psychiatric exam: Present: normal affect, normal mood - Skin Skin exam: Present: warm, dry, intact, normal color. Absent: rash ED Course Vital Signs 10/15/17 10/15/17 10/15/17 22:37 23:00 23:33 Pulse Rate 93 H 80 79 Pulse Rate [ Posterior Bilateral Throughout] Respiratory 24 23 22 Rate Respiratory Rate [Posterior Bilateral Throughout] Blood Pressure 153/94 169/83 Blood Pressure 146/94 [Left] O2 Sat by Pulse 94 90 94 Oximetry 10/15/17 10/16/17 10/16/17 23:45 00:10 01:00 Pulse Rate 82 Pulse Rate [ 77 82 Posterior Bilateral Throughout] Respiratory 28 H Rate Respiratory 20 16 Rate [Posterior Bilateral Throughout] Blood Pressure 160/76 Blood Pressure [Left] O2 Sat by Pulse 89 Oximetry 10/16/17 10/16/17 02:00 02:14 Pulse Rate Pulse Rate [ 89 Posterior Bilateral Throughout] Respiratory Rate Respiratory 21 Rate [Posterior Bilateral Throughout] Blood Pressure 150/81 Blood Pressure [Left] O2 Sat by Pulse Oximetry ED Medical Decision Making - Lab Data Result diagrams: 10/15/17 21:03 10/15/17 21:03 - EKG Data -: EKG Interpreted by Me EKG shows normal: sinus rhythm (rate of 80), axis (left), intervals (normal), QRS complexes (normal), ST-T waves (normal) - Radiology Data Radiology results: report reviewed Critical care attestation.: If time is entered above; I have spent that time in minutes in the direct care of this critically ill patient, excluding procedure time. ED Disposition Clinical Impression: Acute bronchitis Disposition: DC- TO HOME OR SELFCARE Is pt being admited?: No Does the pt Need Aspirin: No Condition: Stable Instructions: Acute Bronchitis (ED) Prescriptions: Albuterol Sulfate [Ventolin HFA] 2 puff IH Q4H PRN #1 hfa.aer.ad PRN Reason: Shortness Of Breath Azithromycin 250 mg PO DAILY #4 tablet Referrals: PILI JUSTIN MD [Primary Care Provider] - 3-5 Days Time of Disposition: 03:44 Print Language: BAHRAINI
[2017-10-16 00:47] LABS: Bilirubin,Urine NEG (Negative); Blood,Urine NEG (Negative); Color,Urine Yellow (Yellow); Mucus,Urine FEW /HPF; Protein,Urine <15 mg/dL mg/dL (Negative); Urobilinogen,Urine < 2.0 mg/dL (<2.0); WBC,Urine < 1.0 /HPF (0.0-6.0)
[2017-10-16] MEDS ORDERED: DUONEB *Not for PRN Use IH ONE (01:31)
[2017-10-16] MEDS ORDERED: NACL ONE (01:37)
--- NOTE | 2017-10-16 02:59 | Cat Scan Report ---
FINAL REPORT EXAM: CT ANGIO CHEST HISTORY: shortness of breath TECHNIQUE: A CT angiogram was obtained of the thorax following the intravenous injection of iodinated contrast. MIP sagittal and coronal reconstructions were reviewed. Correlation is made to the study of 09/14/2017. FINDINGS: There is no evidence of pulmonary embolus or aortic dissection. The thoracic aorta is normal in caliber. The heart size is normal. Pericardial fluid is not seen. There is no evidence of adenopathy. In the upper abdomen the adrenal glands appear normal. The gallbladder has been removed. The skeletal structures reveal multilevel disc degeneration in the dorsal spine. The thyroid gland reveals stable low-attenuation lesion in the left lobe. IMPRESSION: No evidence of pulmonary embolus, aortic dissection, or vascular congestion. No acute process in the chest. Cholecystectomy. Stable low-attenuation lesion in the left thyroid lobe. Further evaluation is recommended with outpatient thyroid sonography.
[2017-10-16] MEDS ORDERED: ZITHROMAX PO ONE (03:34)
[2017-10-16 04:36] VITALS: BP 144/80
== END 2017-10-16 04:37 | disposition home or self-care (01) ==
LOC: ED 20:38
DX: J20.9 Acute bronchitis, unspecified (principal); I10 Essential (primary) hypertension
CPT/HCPCS: 36415; 71046; 71275; 80053; 81001; 82803; 84484; 85025; 85379; 85610; 85730; 87116; 87430; 93005; 93010; 94640; 99285; Q9967

== ENCOUNTER → 2018-02-16 | Outpatient (CLI) | payer MEDICAID ==
--- NOTE | 2018-02-16 12:24 | Cat Scan Report ---
CTA CHEST INDICATION: Pulmonary embolism without acute cor pulmonale. COMPARISON: 10/16/2017 CTA FINDINGS: Chest CTA performed following intravenous administration of 100 cc of Omnipaque 350. Rotational MIP's also obtained. Normal heart size. No effusions. No aortic aneurysm, dissection or suspicious pulmonary arterial filling defects. No size significant adenopathy. Normal airway. Unremarkable thyroid. Clear lungs. Images through included upper abdomen reveal no acute abnormality. Left hepatic lobe tip again extends into the left upper quadrant. Stable cholecystectomy clips. Multilevel spinal degenerative changes, including mid to lower thoracic spine prominent right-sided osteophytes. CONCLUSION: No CT evidence of pulmonary embolism with few other stable findings, as above. Thank you for the opportunity to participate in this patient's care.
--- NOTE | 2018-02-18 08:46 | Vascular Lab Report ---
LOWER EXTREMITY VENOUS DUPLEX: REASON FOR EXAM: Pulmonary embolism. COMMENTS ON THE RIGHT: All veins visualized are freely compressible without evidence of internal echogenicity. Flow is spontaneous and phasic throughout. COMMENTS ON THE LEFT: All veins visualized are freely compressible without evidence of internal echogenicity. Flow is spontaneous and phasic throughout. IMPRESSION: No evidence of acute or chronic deep venous thrombosis in either lower extremity.
== END | disposition home or self-care (01) ==
LOC: VAS 10:15
PROVIDERS: ATTEND Internal Medicine Hematology & Oncology
DX: M47.894 Other spondylosis, thoracic region (principal); I10 Essential (primary) hypertension; E66.9 Obesity, unspecified; F41.9 Anxiety disorder, unspecified; Z91.013 Allergy to seafood; Z90.49 Acquired absence of other specified parts of digestive tract
CPT/HCPCS: 71275; 93970; Q9967

== ENCOUNTER 2020-03-31 14:50 | Emergency (ER) | payer MEDICARE ==
--- NOTE | 2020-03-31 20:18 | XRay Report ---
CHEST 2 VIEWS INDICATION / CLINICAL INFORMATION: sob,cough and rales. COMPARISON: 10/15/2017 FINDINGS: SUPPORT DEVICES: None. HEART / MEDIASTINUM: Stable. LUNGS / PLEURA: Rounded opacity at the right cardiophrenic angle. No evidence of pleural effusion. No pneumothorax. ADDITIONAL FINDINGS: No significant additional findings. IMPRESSION: 1. Interval development of a rounded opacity at the right cardiophrenic angle may represent infectiou s process given the patient's history. Signer Name: Alistair Talley MD Signed: 03/31/2020 8:14 PM Workstation Name: [id number]
[2020-03-31] MEDS ORDERED: AZITHROMYCIN 250 MG TAB PO ONE (20:51)
[2020-03-31] MEDS ORDERED: BENZONATATE 100 MG CAP PO ONE (20:51)
[2020-03-31] MEDS ORDERED: predniSONE 20 MG TAB PO ONE (21:00)
[2020-03-31] MEDS ORDERED: IPRATROPIUM/ALBUTEROL SULFATE 3 ML AMPUL.NEB IH ONE (21:00)
--- NOTE | 2020-03-31 21:05 | Emergency Department Report ---
- General Chief Complaint: Upper Respiratory Infection Stated Complaint: COUGH Time Seen by Provider: 03/31/20 20:51 Source: patient, EMS Mode of arrival: Wheelchair Limitations: No Limitations - History of Present Illness Initial Comments: 54-year-old female from [place] with the past medical history of obesity, asthma, COPD, hypertension, anemia, PE/DVT in 2017 (pt currently on ELiquis) presents to the hospital complaining of a severe cough and intermittent wheezing and shortness of breath x1 week. Cough productive of yellow sputum. Patient having significant coughing spells which caused her to feel short of breath. Coughing worse at night and while lying supine. Patient also having increased wheezing despite albuterol inhaler use. Patient denies home oxygen use and does not have a nebulizer. She currently takes albuterol inhaler and Symbicort for her chronic asthma/COPD. Patient has not had fever, denies loss sense of taste and smell, last negative COVID test was past November or December and she has not been recently tested. She denies any known COVID positive exposure. - Related Data Home Medications Medication Instructions Recorded Confirmed Last Taken Apixaban [Eliquis] 5 mg PO BID 09/15/17 03/31/20 Unknown amLODIPine 10 mg PO DAILY 09/15/17 03/31/20 Unknown Citalopram [celeXA] 60 mg PO QDAY 10/15/17 03/31/20 Unknown Cyanocobalamin [Vitamin B-12] 1,000 mcg IM Q4W 10/15/17 03/31/20 10/10/17 Ferrous Sulfate [Feosol 325 MG tab] 325 mg PO BID 10/15/17 03/31/20 Unknown Gabapentin [Neurontin] 300 mg PO QHS PRN 10/15/17 03/31/20 Unknown Astelin (Nf) 1 spr INNOSTRIL DAILY 03/31/20 03/31/20 Unknown Budesonide/Formoterol Fumarate 1 puff INHALATION DAILY 03/31/20 03/31/20 Unknown [Symbicort 160-4.5 Mcg Inhaler] Chlorthalidone [Thalitone] 25 mg PO QDAY 03/31/20 03/31/20 Unknown Cyclobenzaprine [Flexeril 10 MG 10 mg PO QHS 03/31/20 03/31/20 Unknown TAB] Fluticasone [Flonase] 1 spray NS QDAY 03/31/20 03/31/20 Unknown Fluticasone [Flonase] 1 spray NS QDAY 03/31/20 03/31/20 Unknown Furosemide [Lasix] 20 mg PO QDAY 03/31/20 03/31/20 Unknown carvediloL [Coreg] 12.5 mg PO BID 03/31/20 03/31/20 Unknown hydrOXYzine PAMOATE [Vistaril] 25 mg PO QAM 03/31/20 03/31/20 Unknown hydrOXYzine PAMOATE [Vistaril] 50 mg PO QHS 03/31/20 03/31/20 Unknown Previous Rx's Medication Instructions Recorded Last Taken Type Folic Acid [Folvite] 1 mg PO QDAY #30 tablet 01/27/17 02/26/17 Rx Losartan [Cozaar] 100 mg PO QDAY #30 tablet 01/27/17 02/26/17 Rx Albuterol Sulfate [Ventolin HFA] 2 puff IH Q4H PRN #1 hfa.aer.ad 10/16/17 Unknown Rx Albuterol Sulfate [Proventil Hfa] 2 puff IH Q4HR PRN #1 hfa.aer.ad 03/31/20 Unknown Rx Azithromycin [Zithromax Z-DEVENDRA] 1 dose PO DAILY 5 Days tab 03/31/20 Unknown Rx Benzonatate [Tessalon Perles] 100 mg PO Q8HR #20 capsule 03/31/20 Unknown Rx Prednisone [predniSONE 10 mg 10 mg PO .TAPER #1 tab.ds.pk 03/31/20 Unknown Rx (6-Day Pack, 21 Tabs)] guaiFENesin/CODEINE [Robitussin AC] 5 ml PO Q6HR PRN #14 udc 03/31/20 Unknown Rx Allergies Allergy/AdvReac Type Severity Reaction Status Date / Time shellfish derived Allergy Unknown Verified 09/14/17 20:51 ED Review of Systems ROS: Stated complaint: COUGH Other details as noted in HPI Comment: All other systems reviewed and negative ED Past Medical Hx - Past Medical History Previous Medical History?: Yes Hx Hypertension: Yes Hx Congestive Heart Failure: Yes Hx Diabetes: No Hx Pulmonary Embolism: Yes Hx Asthma: No Hx COPD: Yes Additional medical history: ANEMIA, dvt 01/2017 - Surgical History Past Surgical History?: Yes Hx Cholecystectomy: Yes - Social History Smoking Status: Never Smoker Substance Use Type: Alcohol, Prescribed - Medications Home Medications: Home Medications Medication Instructions Recorded Confirmed Last Taken Type Folic Acid [Folvite] 1 mg PO QDAY #30 tablet 01/27/17 03/31/20 02/26/17 Rx Losartan [Cozaar] 100 mg PO QDAY #30 tablet 01/27/17 03/31/20 02/26/17 Rx Apixaban [Eliquis] 5 mg PO BID 09/15/17 03/31/20 Unknown History amLODIPine 10 mg PO DAILY 09/15/17 03/31/20 Unknown History Citalopram [celeXA] 60 mg PO QDAY 10/15/17 03/31/20 Unknown History Cyanocobalamin [Vitamin B-12] 1,000 mcg IM Q4W 10/15/17 03/31/20 10/10/17 History Ferrous Sulfate [Feosol 325 MG tab] 325 mg PO BID 10/15/17 03/31/20 Unknown History Gabapentin [Neurontin] 300 mg PO QHS PRN 10/15/17 03/31/20 Unknown History Albuterol Sulfate [Ventolin HFA] 2 puff IH Q4H PRN #1 hfa.aer.ad 10/16/17 03/31/20 Unknown Rx Albuterol Sulfate [Proventil Hfa] 2 puff IH Q4HR PRN #1 hfa.aer.ad 03/31/20 Unknown Rx Astelin (Nf) 1 spr INNOSTRIL DAILY 03/31/20 03/31/20 Unknown History Azithromycin [Zithromax Z-DEVENDRA] 1 dose PO DAILY 5 Days tab 03/31/20 Unknown Rx Benzonatate [Tessalon Perles] 100 mg PO Q8HR #20 capsule 03/31/20 Unknown Rx Budesonide/Formoterol Fumarate 1 puff INHALATION DAILY 03/31/20 03/31/20 Unknown History [Symbicort 160-4.5 Mcg Inhaler] Chlorthalidone [Thalitone] 25 mg PO QDAY 03/31/20 03/31/20 Unknown History Cyclobenzaprine [Flexeril 10 MG 10 mg PO QHS 03/31/20 03/31/20 Unknown History TAB] Fluticasone [Flonase] 1 spray NS QDAY 03/31/20 03/31/20 Unknown History Fluticasone [Flonase] 1 spray NS QDAY 03/31/20 03/31/20 Unknown History Furosemide [Lasix] 20 mg PO QDAY 03/31/20 03/31/20 Unknown History Prednisone [predniSONE 10 mg 10 mg PO .TAPER #1 tab.ds.pk 03/31/20 Unknown Rx (6-Day Pack, 21 Tabs)] carvediloL [Coreg] 12.5 mg PO BID 03/31/20 03/31/20 Unknown History guaiFENesin/CODEINE [Robitussin AC] 5 ml PO Q6HR PRN #14 udc 03/31/20 Unknown Rx hydrOXYzine PAMOATE [Vistaril] 25 mg PO QAM 03/31/20 03/31/20 Unknown History hydrOXYzine PAMOATE [Vistaril] 50 mg PO QHS 03/31/20 03/31/20 Unknown History ED Physical Exam - General Limitations: No Limitations - Other Other exam information: General: No acute distress Head: Atraumatic Eyes: normal appearance ENT: Moist mucous membranes Neck: Normal appearance, no midline tenderness Chest: Clear to auscultation bilaterally, diminished breath sounds, no wheezing, frequent coughing with deep inspiratory. No tachypnea accessory muscle use CV: Regular rate and rhythm Abdomen: Soft, normal bowel sounds, nontender, nondistended, no rebound or guarding Back: Normal inspection Extremity: Normal inspection, full range of motion, no calf tenderness, leg edema, or leg asymmetry Neuro: Alert O x 3, no facial asymmetry, speech clear, no gross motor sensory deficit Psych: Appropriate behavior Skin: No rash ED Course Vital Signs 03/31/20 03/31/20 03/31/20 15:14 21:07 21:32 Temperature 97.8 F Pulse Rate 89 Pulse Rate [ 89 Bilateral Throughout] Respiratory 20 20 Rate Respiratory 20 Rate [Bilateral Throughout] Blood Pressure 125/77 Blood Pressure [Left] O2 Sat by Pulse 96 94 Oximetry 03/31/20 21:36 Temperature Pulse Rate 86 Pulse Rate [ Bilateral Throughout] Respiratory 20 Rate Respiratory Rate [Bilateral Throughout] Blood Pressure Blood Pressure 160/109 [Left] O2 Sat by Pulse 94 Oximetry ED Medical Decision Making - Radiology Data Radiology results: report reviewed CHEST 2 VIEWS INDICATION / CLINICAL INFORMATION: sob,cough and rales. COMPARISON: 10/15/2017 FINDINGS: SUPPORT DEVICES: None. HEART / MEDIASTINUM: Stable. LUNGS / PLEURA: Rounded opacity at the right cardiophrenic angle. No evidence of pleural effusion. No pneumothorax. ADDITIONAL FINDINGS: No significant additional findings. IMPRESSION: 1. Interval development of a rounded opacity at the right cardiophrenic angle may represent infectious process given the patient's history. - Medical Decision Making Patient feeling better with ED treatment. Initial she had mild relief and cough with Tessalon Perles. Cough further improved with Robitussin-AC as well as chest wall pain. Patient states she is scheduled for a sleep study but denies a diagnosis of sleep apnea at this time. She has been unable to sleep due to coughing. She will be placed on a lower dose of Robitussin-AC since I suspect that she may have sleep apnea. Critical Care Time: No Critical care attestation.: If time is entered above; I have spent that time in minutes in the direct care of this critically ill patient, excluding procedure time. ED Disposition Clinical Impression: Pneumonia, Acute bronchitis Disposition: DC- TO HOME OR SELFCARE Is pt being admited?: No Does the pt Need Aspirin: No Condition: Stable Instructions: Acute Bronchitis (ED), Community-acquired Pneumonia (ED) Additional Instructions: Take the medication as prescribed. Follow-up with your doctor or doctor/clinic provided. Return if symptoms worsen as indicated by your discharge instructions. The findings of the chest x-ray are suspicious for pneumonia. After treatment and symptom improvement is important to have the x-ray improved repeated to make sure that the abnormal area seen on the right lower lung field has improved. Unfortunately we not perform coronavirus testing in the ED for patients who are not admitted to the hospital. I recommend outpatient coronavirus testing since we are currently having infectious symptoms and the last test was several months ago. Prescriptions: Prednisone [predniSONE 10 mg (6-Day Pack, 21 Tabs)] 10 mg PO .TAPER #1 tab.ds.pk Albuterol Sulfate [Proventil Hfa] 2 puff IH Q4HR PRN #1 hfa.aer.ad PRN Reason: Wheezing guaiFENesin/CODEINE [Robitussin AC] 5 ml PO Q6HR PRN #14 udc PRN Reason: Cough Benzonatate [Tessalon Perles] 100 mg PO Q8HR #20 capsule Azithromycin [Zithromax Z-DEVENDRA] 1 dose PO DAILY 5 Days tab Referrals: PRIMARY CAREMD [Primary Care Provider] - 3-5 Days CHANTELLE GONZALEZ MD [Staff Physician] - 3-5 Days [facility] [Provider Group] - 3-5 Days Time of Disposition: 23:35
[2020-03-31] MEDS ORDERED: guaiFENesin/CODEINE 100-10MG ORAL LIQD 5 ML PO ONE (22:36)
[2020-04-01 00:22] VITALS: BP 123/76
[2020-04-01] MEDS ORDERED: dexAMETHasone 20 MG/5 ML VIAL ONE (12:18)
[2020-04-01] MEDS ORDERED: propofoL 200 MG/20 ML VIAL IV ONE (12:18)
[2020-04-01] MEDS ORDERED: LIDOCAINE MPF (2%) 20 MG/1 ML VIAL 5 ML ONE (12:18)
[2020-04-01] MEDS ORDERED: ONDANSETRON 4 MG/2 ML INJ ONE (12:18)
[2020-04-01] MEDS ORDERED: ROCURONIUM 50 MG/5 ML INJ IV ONE (12:18)
[2020-04-01] MEDS ORDERED: fentaNYL 100 MCG/2 ML INJ ONE (12:18)
[2020-04-01] MEDS ORDERED: SODIUM CHLORIDE 0.9% 1000 ML 1,000 ML ONE (12:54)
[2020-04-01] MEDS ORDERED: SUCCINYLCHOLINE CHLORIDE 200 MG/10 ML INJ MDV ONE (12:56)
[2020-04-01] MEDS ORDERED: ceFAZolin 1 GM VIAL ONE (13:12)
[2020-04-01] MEDS ORDERED: PHENYLEPHRINE/NS 1,000 MCG/10 ML SYRINGE (OR USE) IV ONE (13:12)
[2020-04-01] MEDS ORDERED: NEOSTIGMINE 10MG/10 ML INJ MDV ONE (14:33)
[2020-04-01] MEDS ORDERED: GLYCOPYRROLATE 0.4 MG/2 ML INJ ONE (14:33)
== END 2020-04-01 02:00 | disposition home or self-care (01) ==
LOC: ED 14:50
DX: J20.9 Acute bronchitis, unspecified (principal); J18.9 Pneumonia, unspecified organism; I50.9 Heart failure, unspecified; I11.0 Hypertensive heart disease with heart failure; J44.9 Chronic obstructive pulmonary disease, unspecified; Z90.49 Acquired absence of other specified parts of digestive tract; Z79.2 Long term (current) use of antibiotics; Z79.899 Other long term (current) drug therapy; Z91.013 Allergy to seafood
CPT/HCPCS: 71046; 94640; 99284; J0330; J0690; J1100; J2370; J2405; J2704; J2710; J3010; J7030; J7512; 94644

== ENCOUNTER 2021-08-17 19:59 | Emergency (ER) | payer MEDICARE ==
[2021-08-17] MEDS ORDERED: INSULIN REGULAR, HUMAN 100 UNITS/1 ML IV ONE (21:27)
[2021-08-17] MEDS ORDERED: SODIUM CHLORIDE 0.9% 1000 ML 1,000 ML IV ONE (21:27)
[2021-08-17 22:02] LABS: Basophils % (Auto) 0.3 % (0.0-1.8); Eosinophils # (Auto) 0.4 K/mm3 (0.0-0.4); Eosinophils % (Auto) 4.3 % (0.0-4.3); Hematocrit 36.4 % (30.3-42.9); Hemoglobin 11.4 gm/dl (10.1-14.3); Lymphocytes # (Auto) 1.6 K/mm3 (1.2-5.4); Mean Corpuscular HGB Conc 31 % (30-34); Mean Corpuscular Volume 84 fl (79-97); Monocytes # (Auto) 0.6 K/mm3 (0.0-0.8); Monocytes % (Auto) 6.9 % (0.0-7.3); Platelet Count 241 K/mm3 (140-440); Red Blood Count 4.34 M/mm3 (3.65-5.03); Red Cell Distribution Width 13.3 % (13.2-15.2)
[2021-08-17 22:21] LABS: Calcium 9.2 mg/dL (8.4-10.2)
[2021-08-17] MEDS ORDERED: fentaNYL 100 MCG/2 ML INJ IV ONE (22:35)
[2021-08-18 01:08] VITALS: BP 128/84
== END 2021-08-18 01:07 | disposition home or self-care (01) ==
LOC: ED 19:59
DX: N17.9 Acute kidney failure, unspecified (principal); E11.65 Type 2 diabetes mellitus with hyperglycemia; I11.0 Hypertensive heart disease with heart failure; I50.9 Heart failure, unspecified; J44.9 Chronic obstructive pulmonary disease, unspecified; Z91.040 Latex allergy status; Z88.6 Allergy status to analgesic agent; Z91.013 Allergy to seafood; Z79.899 Other long term (current) drug therapy
CPT/HCPCS: 36415; 80048; 82805; 82962; 85025; 96361; 96374; 99283; J3010; J7030; Q0162